=== PATIENT | male | born 1935 | race Caucasian/White ===

== ENCOUNTER 2016-11-19 01:54 | Inpatient (IN) ==
[2016-11-19] MEDS ORDERED: ASPIRIN PO STA (02:02)
[2016-11-19 02:15] LABS: MANUAL DIFF NEEDED? NO
--- NOTE | 2016-11-19 02:17 | EKG Report ---
Test Performed on : 11/19/2016 02:09:02 AM Test Reason : CHEST PAIN Blood Pressure : / mmHG Vent. Rate : 091 BPM Atrial Rate : 091 BPM P-R Int : 180 ms QRS Dur : 094 ms QT Int : 360 ms P-R-T Axes : 049 -03 032 degrees QTc Int : 442 ms Normal sinus rhythm. Nonspecific ST and T wave abnormality Abnormal ECG When compared with ECG of 11-AUG-2015 19:14, ST now depressed in Anterior leads Nonspecific T wave abnormality now evident in Lateral leads Unconfirmed Result
--- NOTE | 2016-11-19 02:27 | PROVIDER DOCUMENTATION ---
HPI-Chest Pain - General Source: patient, family - History of Present Illness-CP Location: reports: central Chest Pain Radiation: reports: no radiation Quality of Pain: reports: dull, pressure Severity in ED: mild, moderate Onset/Duration: last night Timing: improving Modifying Factors: worse with: lying down Associated Symptoms: denies: abdominal pain, edema, nausea, shortness of breath , vomiting, weakness Nitro Today/Relief: 0.4 mg x 1, provided by EMS Aspirin Treatment Today: 325 mg x 1, provided by EMS Similar Symptoms Previously?: Yes Recently Seen Here or By Another Healthcare Provider: Yes (Acid reflux) <Jam Gordon - Last Filed: 11/19/16 03:02> <Hansel Maurice - Last Filed: 11/19/16 04:54> - General Chief Complaint: Chest Pain Stated Complaint: chest pain Time Seen by Provider: 11/19/16 02:28 Allergies/Adverse Reactions: Patient Allergies Allergy/AdvReac Type Severity Reaction Status Date / Time meperidine HCl * Allergy Unknown Verified 11/19/16 02:02 [From Jose] Home Medications: Home Medication List Medication Instructions Recorded Confirmed Last Taken Type Alprazolam [Xanax] 0.25 mg PO BID 08/11/15 08/11/15 08/11/15 07:00 History Aspirin [Aspirin EC] 81 mg PO DAILY 08/11/15 08/11/15 08/10/15 21:00 History Clopidogrel [Plavix] 75 mg PO DAILY 08/11/15 08/11/15 08/11/15 07:00 History Famotidine 40 mg PO QHS 08/11/15 08/11/15 08/10/15 21:00 History Hydrocodone Bit/Acetaminophen 1 tab PO Q4H PRN 08/11/15 08/11/15 Unknown History [Hydrocodon-Acetaminophen 5-325] Ipratropium 0.03% Nasal [place] 1 dose INH DIRECTED 08/11/15 08/11/15 08/11/15 18:00 History [Atrovent 0.03% Nasal [place]] Ketorolac 0.4% Ophth Soln [Acular 2 drop OP DAILY 08/11/15 08/11/15 08/11/15 07: 00 History Ls 0.4% Ophth Soln] Losartan Potassium [Cozaar] 100 mg PO DAILY 08/11/15 08/11/15 08/10/15 21:00 History Minoxidil 5 mg PO QHS 08/11/15 08/11/15 08/10/15 21:00 History Multivitamin [Multivitamins] 1 cap PO DAILY 08/11/15 08/11/15 08/11/15 07:00 History Nebivolol HCl [Bystolic] 10 mg PO DAILY 08/11/15 08/11/15 08/11/15 07:00 History Piroxicam 20 mg PO DAILY 08/11/15 08/11/15 08/11/15 07:00 History Polyethylene Glycol 3350 [Miralax] 1 dose PO DIRECTED PRN 08/11/15 08/11/15 Unknown History Vit A/Vit C/Vit E/Zinc/Copper 1 cap PO DAILY 08/11/15 08/11/15 08/11/15 12:00 History [I-Caps Areds Softgel] Zolpidem [Ambien] 10 mg PO QHS 08/11/15 08/11/15 08/10/15 21:00 History - History of Present Illness-CP Nature of Presenting Problem: 81 y/o M presents with chest pain that has happened the last 2 nights. Pt claims when he gets up and sits in the recliner the pain goes away in about an hour. (Jam Gordon) Review of Systems - Adult - REVIEW OF SYSTEMS - ADULT Constitutional: denies: chills, fever Eyes: reports: no symptoms reported Ears, Nose, Mouth & Throat: reports: no symptoms reported Cardiovascular: reports: chest pain. denies: edema, palpitations, syncope Respiratory: denies: cough, shortness of breath, wheezing Gastrointestinal: denies: abdominal pain, nausea, vomiting Genitourinary: reports: no symptoms reported Musculoskeletal: reports: no symptoms reported Integumentary: reports: no symptoms reported Neurological: reports: no symptoms reported Psychiatric: reports: no symptoms reported Endocrine: reports: no symptoms reported Hematologic/Lymphatic: reports: no symptoms reported Allergic/Immunologic: reports: no symptoms reported All Other Systems: Reviewed and Negative <Jam Gordon - Last Filed: 11/19/16 03:02> Past History - Adult - PAST MEDICAL HISTORY-ADULT Review of Records: reports: Old Records Reviewed, Nursing Assessment Review, Medications Reviewed Major Childhood Illnesses: reports: denies history Genitourinary: reports: prostate cancer Neurological: reports: TIA Endocrine/Immune: reports: Diabetes Additional History: Anibal Banet Syndrome - PRIOR SURGERIES/PROCEDURES Surgical/Procedure History: reports: appendectomy, other (eye, carotid artery, lumbar epidural, left leg) - IMMUNIZATION STATUS Childhood Immunizations: See Nurse Assessment Flu Vaccine: See Nurse Assessment - FAMILY HISTORY Family History: reviewed, not pertinent - SOCIAL HISTORY Smoking: cigarettes Living Situation: family <FouziaJam todd - Last Filed: 11/19/16 03:02> Physical Exam-General - PHYSICAL EXAM-ADULT Initial Vital Signs Reviewed: Yes - CONSTITUTIONAL General Appearance: alert, no apparent distress - EYES Eyes: PERRL/EOMI, pink conjunctivae - HEAD, EARS, NOSE, MOUTH & THROAT HENMT: moist mucous membranes, normal ENT inspection, TMs normal, pharynx normal - NECK Neck: non-tender, full range of motion, supple, normal inspection - RESPIRATORY Respiratory: lungs clear, normal breath sounds, no pleuratic chest pain, no respiratory distress, no accessory muscle use - CARDIOVASCULAR Cardiovascular: normal peripheral pulses, regular rate, rhythm - GASTROINTESTINAL (ABDOMEN) Abdominal Exam: normal bowel sounds, non tender, soft - MUSCULOSKELETAL Back Exam: normal inspection, no CVA tenderness, no vertebral tenderness Extremity: normal range of motion, non-tender, normal gait, normal inspection - SKIN Integumentary: normal color, normal turgor, warm/dry - NEUROLOGIC Neurologic: grossly normal, no motor/sensory deficits - PSYCHIATRIC Psych/Mental Status: normal mood/affect, normal thought content, normal thought process, oriented x 3 <Cm Gordonin - Last Filed: 11/19/16 03:02> Progress - EKG 1 Time of EKG reading by physician:: 02:09 EKG Read and Signed by:: Hansel Maurice EKG Interpretation (*Must complete 3 of following elements*): Abnormal Rate: 91 Rhythm: NSR Comments: nonspecific St and T wave abnormality <Jam Gordon - Last Filed: 11/19/16 03:02> - EKG 2 Time of EKG reading by physician:: 04:54 EKG Read and Signed by:: Hansel Maurice EKG Interpretation (*Must complete 3 of following elements*): Normal Rate: 86 Rhythm: sinus [place]: normal QRS: normal AR Interval: normal ST Wave: non-specific ST changes Prior EKG Comparison: unchanged from prior <Hansel Maurice - Last Filed: 11/19/16 04:54> Departure - Departure Time of Disposition Order: 03:02 Certified Medical Emergency: Emergent <Jam Gordon - Last Filed: 11/19/16 03:02> <Hansel Maurice - Last Filed: 11/19/16 04:54> - Departure DIAGNOSIS: Atypical chest pain Disposition: STILL A PATIENT 30 Condition: Stable Referrals: Nate Whiting MD [Primary Care Provider] - Attestation - Scribe Verification/Attestation Scribe:: Jam Gordon Acting as Scribe for:: Hansel Maurice Scribe documention review:: This chart was documented by a scribe and accurately reflects the service the provider performed and the decisions made by the provider. <Jam Gordon - Last Filed: 11/19/16 03:02> Physician Attestation
[2016-11-19 02:29] LABS: BASO% 0.6 % (0.0-0.8); EOS# 0.34 X1000 (0.0-0.7); EOS% 3.3 % (0.0-10.0); HEMATOCRIT 24.6 % (42.0-52.0); HEMOGLOBIN 7.5 g/dL (14.0-18.0); IMM GRAN# 0.04 X1000 (0.0-0.04); IMM GRAN% 0.4 % (0.0-0.5); MCH 25.3 PG (27-31); MCHC 30.5 g/dL (33-37); MCV 83.1 FL (81-99); MONO# 1.58 X1000 (0.11-0.59); MONO% 15.2 % (1.7-9.3); MPV 9.5 FL (7.4-10.4); NEUT% 55.5 % (42.2-75.2); PLT 374 X1000 (130-400); RBC 2.96 XMIL (4.7-6.1)
[2016-11-19 02:40] LABS: AGAP 12; ALBUMIN 3.9 g/dL (3.5-5.0); ALKALINE PHOSPHATASE 56 U/L (32-122); BUN 34 mg/dL (8-22); CHLORIDE 106 mmol/L (98-107); CK PROFILE 70 U/L (24-204); COSMO 286; GOT 11 U/L (10-34); GPT 8 U/L (10-44); POTASSIUM 4.2 mmol/L (3.5-5.1); SODIUM 137 mmol/L (136-145); TCO2 20 mmol/L (25-35); TOTAL BILIRUBIN < 0.15 mg/dL (0.20-1.00); TOTAL PROTEIN 5.9 g/dL (6.3-8.3)
[2016-11-19 02:43] LABS: INR 0.96 (0.86-1.15); PROTIME 13.1 Seconds (12.1-15.5)
[2016-11-19 02:44] LABS: PTT PL 28.9 Seconds (22.6-43.9)
[2016-11-19 04:38] LABS: OCCULT BLOOD 1 POSITIVE (NEGATIVE)
--- NOTE | 2016-11-19 07:07 | EKG Report ---
Test Performed on : 11/19/2016 04:22:23 AM Test Reason : p Blood Pressure : / mmHG Vent. Rate : 086 BPM Atrial Rate : 086 BPM P-R Int : 174 ms QRS Dur : 094 ms QT Int : 366 ms P-R-T Axes : 054 -04 032 degrees QTc Int : 437 ms Normal sinus rhythm. Normal ECG When compared with ECG of 19-NOV-2016 02:09, (Unconfirmed) No significant change was found Unconfirmed Result
--- NOTE | 2016-11-19 07:55 | Diag Imaging Result Document ---
PROCEDURE NAME: CHEST-2 VIEWS - 11/19/2016 PA AND LATERAL RADIOGRAPH OF THE CHEST: COMPARISON: 08/11/2015. FINDINGS: There is evidence of prior granulomatous disease, stable. There is suggestion of trace atelectasis at the right mid lung zone. The lungs are clear otherwise. There is no definite pleural fluid collection. Cardiac silhouette and central vasculature are grossly unremarkable. IMPRESSION: Trace atelectasis in the right mid lung zone. No definite acute pathology, otherwise.
[2016-11-19] MEDS ORDERED: TYLENOL PO PRN (08:52)
[2016-11-19] MEDS ORDERED: ZOFRAN IV PRN (08:52)
[2016-11-19 10:04] LABS: HEMATOCRIT 26.7 % (42.0-52.0); HEMOGLOBIN 8.1 g/dL (14.0-18.0)
[2016-11-19] MEDS ORDERED: NORCO-5 PO PRN (10:41)
--- NOTE | 2016-11-19 12:04 | CONSULTATION ---
DATE OF CONSULTATION: 11/19/2016 PRIMARY CARE DOCTOR: Dr. Nate Whiting. PRIMARY SOFTWARE VERIFICATION ENGINEER: Dr. Verena Garcia. REASON FOR CONSULTATION: Anemia, positive Hemoccult, and atypical chest pain. HISTORY OF PRESENT ILLNESS: Mr. Sexton is an 81-year-old male who was admitted through the ER for new onset of chest pain for the last 2 days. According to the patient, he feels pressure in his chest in the lower chest, along with nausea. It got worse last evening any he presented to the ER at [facility]. In [facility], he was seen by Dr. Maurice, and was given nitroglycerin and aspirin per the EMT. During initial workup, he was noted to have anemia with hematocrit of 24 and a positive Hemoccult. The patient has a known history of TIAs and carotid stenosis, and as on aspirin and Plavix. He is also on Mobic every day for arthritis. The patient has seen Dr. Whiting few weeks ago for his symptoms of nausea and discomfort, and he was diagnosed with reflux disease and was put on acid azul medication. Since being in the hospital, the patient denies any vomiting, vomiting blood, passing blood in the stools, or black stools. He has had last colon examination by Dr. Garcia many years ago and was told he had polyps. He does not recall having an EGD done in the past. PAST MEDICAL HISTORY: Several TIAs, diabetes mellitus, chronic kidney disease, major fall and hit his head in 2013, prostrate cancer, hearing loss, and macular degenerative disease with legal blindness. PAST SURGICAL HISTORY: Appendectomy, angiography, left carotid artery surgery, right carotid artery surgery, lumbar epidural and right leg artery surgery, surgery to remove excess blood in the left eye, cataract in the right eye, angiography in 1992 and 1994. SOCIAL HISTORY: He is . He has a very supportive and daughter at bedside. His daughter helps with his activities and managing his medications, and has power of insurance defense attorney. No history of alcohol, tobacco, or illicit drugs. He used to work in [employer] and retired many years ago. FAMILY HISTORY: Noncontributory. ALLERGIES: Demerol. MEDICATIONS AT HOME: Multivitamin once daily. Bystolic 10 mg once daily. Mobic 7.5 mg once daily. Plavix 70 mg daily. Ultracet 37.5/325 mg 1/2 tablet in the morning and 1/2 in the afternoon. Xanax 0.25 mg 1 in the morning and 1 in the afternoon. Neurontin 100 mg 3 times a day. Multivitamin once daily. Cymbalta 30 mg once daily. Prilosec 40 mg once daily at bedtime. Cozaar 100 mg once daily. Ambien 10 mg once daily at nighttime. Aspirin 81 every day at bedtime. Famotidine 40 mg once daily at bedtime. Minoxidil 50 mg at bedtime. MEDICATIONS IN HOSPITAL: Protonix drip, Tylenol, Zofran, IV fluids at 100 mL/h, Carafate 1 g q.6 hours. He is currently on a clear liquid diet. REVIEW OF SYSTEMS: Denies any fevers, rigors, chills. Complains of atypical chest pain as a pressure in his chest, being worked up by the primary team. Denies any shortness of breath, PND, or orthopnea. Denies any coughing spells. Denies any vomiting or passing blood in the stools. Denies any new genitourinary complaints. Does have history of arthritis in the back and taking Mobic. Denies any new neurological complaints. He has a prior history of TIAs. PHYSICAL EXAMINATION: Vital signs: Temperature 97.5 degrees, pulse of 85, respiratory rate 16, blood pressure 150/72, saturating 99% on nasal cannula. Body weight of 194 pounds 11 ounces. BMI of 27 kg/sq m. General Appearance: Moderately nourished, lying in bed in no acute distress. HEENT: Pale conjunctivae. No icterus. Pupils equal, react to light. Neck: Supple. Chest: Air entry is equal. Cardiac: Regular rhythm. No murmur. Abdomen: Soft, nontender, nondistended. Bowel sounds are noted. No guarding or rebound. Extremities: No cyanosis, clubbing, or edema. Neurologic: He is alert, awake, and oriented. LABORATORY AND DIAGNOSTIC TESTS: Hemoglobin and hematocrit are 7.5 and 24.6, white count 10.3, platelet count of 374,000, MCV 83.1. INR of 0.96, PT of 13.1, PTT of 28.9. Sodium 137, potassium 4.2, chloride 106, bicarbonate 20, anion gap 12, BUN of 34, creatinine of 2, glucose of 177, calcium 9, magnesium 2.0, total bilirubin 0.15, AST 11, ALT 8, alkaline phosphatase 56, total protein 5.9, albumin 3.9. Troponin is less than 0.01. His stool occult blood was positive. His chest x-ray done in the hospital showed trace atelectasis in the right mid lung zone. No definite acute pathology. IMPRESSIONS: 1. Positive Hemoccult and low hematocrit anemia. 2. History of transient ischemic attacks and carotid stenosis, on aspirin and Plavix. 3. History of arthritis, on Mobic. 4. Hearing loss. 5. 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 6. History of colon polyps. 7. Nausea and atypical chest pain. 8. Reflux disease. RECOMMENDATIONS: 1. We will continue to keep a close eye on patient's hemoglobin and hematocrit and transfuse to keep hematocrit more than 27%. 2. The patient will continue Protonix drip for now. We will keep him on Carafate 1 g every 6 hours. 3. The patient will be started on a clear liquid diet, as per primary team. 4. We will check platelet aggregation study in the morning. 5. Patient is scheduled for esophagogastroduodenoscopy tomorrow morning with Dr. Garcia. The risks, benefits, indications, and alternatives of the procedure were discussed with the patient and family, and all questions were answered. 6. We will avoid any NSAIDs and blood thinners for now, until the hematocrit stabilizes. 7. There is a small risk of transient ischemic attack or clot forming while coming off the anti- platelet agents and these risks were discussed with the patient and family at bedside. 8. We will start him on bowel regimen, as the patient appears to be constipated. We will start him on Dulcolax suppository at bedtime and some Radha-Colace by mouth. 9. The patient was ordered a CT scan, which has not been done yet. We will follow the results of that. 10. Further recommendations to follow, pending hospital course. I discussed the above plan of care with the patient and family and the primary care team, and all questions were answered. Please call us with any further questions.
[2016-11-19 12:10] LABS: IRON SATURATION 10 %; TIBC 352 ug/dL; TOTAL IRON 36 ug/dL (53-167); UNBOUND IRON 316 ug/dL (112-346)
--- NOTE | 2016-11-19 12:37 | HISTORY AND PHYSICAL ---
PRIMARY CARE PROVIDER: Dr. Whiting. CHIEF COMPLAINT: Chest pain, spells of nausea and vomiting. HISTORY OF PRESENT ILLNESS: Mr. Sexton is an 81-year-old, male with a history of macular degeneration, can only see anywhere from 5 to 10%, diabetes, CKD, hypertriglyceridemia, who apparently about a week and a half ago was having some spells of chest pains with nausea and vomiting. They went away and then over the last 2 days he started having some chest pains again. Apparently he was under significant stress yesterday as he had to put a loved dog to sleep that he had had for 11 years. This brought significant stress and chest pain and so he presented to [facility] where he was worked up for rule out of coronary artery disease. It was also found during workup that he had a hemoglobin and hematocrit of 7.5 and at 24.6. He also had a positive occult stool with blood. Given the patient's vision, it is unable to determine whether there is blood in the stool or in the emesis that he had. He apparently has been taking aspirin, it is not enteric-coated. He also has been taking Mobic over the last month that was newly started for arthritis that he has in his hips. He also does have a history of GERD. En route to the ER for the complaints of chest pain they had given him aspirin 325 mg and a sublingual nitroglycerin prior to arrival. He still actually has some pain. It is not substernal; it is actually below, in the epigastric region. States that it is a 2 and that it is just a dull ache. He had no radiation of the pain to the arms or the neck. He had no diaphoresis. He did have nausea. The pain is constant. Given his low hemoglobin and hematocrit and the positive stool for blood, a GI consult has been consulted. He will go for an EGD tomorrow. He will receive blood transfusion and any medications that are agitating to the stomach has been held. He will be started on a Protonix drip and on Carafate, clear liquids today, and then NPO after midnight. PAST MEDICAL HISTORY: Diabetes but no medication, CKD stage 2, cluster TIA, prostate cancer, DVT, hypertriglyceridemia, macular degeneration with 5 to 10% vision, Anibal Bonnet syndrome, GERD, PAST SURGICAL HISTORY: Left leg artery in 2013, lumbar epidural, left carotid, CEA in 2010, right carotid CEA 2005, prostate cancer surgery in 2004, likely a prostatectomy, left heart catheterization in 1992 and 1994, appendectomy in 1972, cataract surgery. SOCIAL HISTORY: He is . Lives with his . He is a less than a half pack per day smoker. Denies alcohol or illicit drug use. He uses a walking stick to walk. FAMILY HISTORY: Father had prostate cancer. Mother had dementia. Sister had congestive heart failure and end-stage renal disease and a brother had prostate cancer. REVIEW OF SYSTEMS: Fourteen point review of systems were complete and all are negative except for those mentioned in the above HPI. ALLERGIES: Demerol. HOME MEDICATIONS: Mobic 7.5 mg p.o. daily, [place] 5 one tablet p.o. every 4 hours as needed, MiraLAX 17 g p.o. daily as needed, Acular ophthalmic drops daily, Ambien 10 mg p.o. nightly, enteric-coated aspirin 81 mg p.o. daily as a baby aspirin, Atrovent nebulizer as needed, Pepcid 40 mg p.o. nightly, Cozaar 100 mg p.o. daily, minoxidil 5 mg p.o. at bedtime, multivitamins p.o. daily, Bystolic 10 mg p.o. daily, piroxicam 20 mg p.o. daily, Plavix 75 mg p.o. daily, vitamin with vitamin A C, E, zinc, copper 1 capsule p.o. daily, Xanax 0.25 mg p.o. twice daily. LABORATORY DATA: White blood cells 10,000, hemoglobin and hematocrit on admit were 7.5 and 24.6, repeat this morning was 8.1 and 26.7, platelet count 374,000. INR 0.96. D- dimer is 1.08. Sodium 137, potassium 4.2, BUN 34, creatinine 2.0, glucose 177, magnesium 2.0, total bilirubin less than 0.15, AST 11, ALT 8. CK 69. Troponin is less than 0.01. ProBNP is 1,133. Total protein 5.9. Stool positive for blood. IMAGING: An abdominal and pelvic CT without contrast has been ordered. EKG: Normal sinus rhythm, rate 86. No ST elevations or depressions noted. No Q-waves. QTc is 437. Rate is 86. Chest x-ray: Trace atelectasis in the right mid lung zone. No definite acute pathology. No mention of COPD. PHYSICAL EXAMINATION: VITAL SIGNS: Temperature 97.5 degrees, heart rate 85, respiratory rate 16, blood pressure 158/72, O2 saturation 99% on nasal cannula. He is 5 feet 11 inches tall, 194.11 pounds , BMI 27.2. GENERAL: Mr. Sexton is an 81-year-old male. He is in no acute distress. He is able answer most questions appropriately. HEENT: Atraumatic, normocephalic. Pupils are equal. He has macular degeneration. He is unable to perform extraocular movements. Mucous membranes are dry. NECK: No JVD or carotid bruits. CARDIOVASCULAR: S1, S2. Regular rate and rhythm. No rubs, gallops, or murmurs. PULMONARY: Clear to auscultation. Bilateral breath sounds. Decreased in the bases. No accessory muscle use or work of breathing noted. Currently on nasal cannula. GI: Soft. Positive bowel sounds x4. Tender in the right upper and lower quadrants. EXTREMITIES: Trace of lower extremity edema. There are +2 dorsalis and radial pulses. NEUROLOGIC: Oriented x4. Moves all extremities equally. ASSESSMENT AND PLAN: 1. Gastrointestinal bleed. Likely epigastric given symptoms of atypical chest pains and epigastric type pain. He has been having some vomiting and daily stools. It is unknown if these were black and tarry or bloody as patient's macular degeneration prevents him from being able to visualize the color. We will start him on a Protonix drip, Carafate , clear liquids, NPO after midnight, EGD in the morning. Gastroenterology is following. Will do serial hemoglobin and hematocrit. His stool was positive for blood. Will do IV fluid hydration. The patient was on Mobic and regular aspirin that was not enteric-coated and those have been held. P2Y12 and platelet aggregate has been ordered for in the morning. 1. Atypical chest pain. No ST changes on EKG. He has normal cardiac enzymes. He does have an elevated proBNP. His last echocardiogram had a normal ejection fraction back in 2014. Will repeat an echocardiogram and recheck cardiac enzymes with EKG in the morning. 2. Acute blood loss anemia secondary to #1. Will do serial hemoglobin d hematocrit and he will receive 1 unit of blood today. 3. Acute kidney injury on chronic kidney disease stage 2. Creatinine is 2.0. He will have IV fluid hydration . Will do a urinalysis with urine sodium and creatinine. Likely secondary to dehydration. 4. Hypertension. Home medications have been continued. 5. Diabetes mellitus. We will do pattern blood glucoses, although he does not have any diabetic medications at home, and a sliding scale insulin. Will also be checking a hemoglobin A1c in the morning. 6. Hypertriglyceridemia. Will do a lipid panel in the morning. Continue home medications. 7. Chronic pain in the left shoulder and in the bilateral hips. This is what he was taking Mobic for. Will just do Tylenol as needed for now. 8. History of transient ischemic attack status post carotid endarterectomies bilaterally. No residuals noted. 9. History of a deep vein thrombosis. He has a mildly elevated D-dimer. Will add a V/Q scan given his kidney dysfunction and then lower extremity Dopplers as he will have his Plavix on hold secondary to the GI bleed and his aspirin on hold. 10. Macular degeneration. Five to 10% vision only. 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 12. Deep venous thrombosis prophylaxis. SCDs. 13. Gastrointestinal prophylaxis. He is on a Protonix drip. 14. Tobacco abuse. Cessation discussed. Dictated by ELAINE Patel for Casey Gonsales MD Addendum: I personally evaluated and examined the patient in conjunction to the OPERATION SUPERVISOR and agreed with her assessments and plans. No abd pain on my exam. Chest pain resolved. JEMIMA
[2016-11-19 12:43] LABS: FERRITIN 11 ng/mL (30-400)
--- NOTE | 2016-11-19 13:08 | Diag Imaging Result Document ---
PROCEDURE NAME: ABDOMEN/PELVIS W/O CONTRAST - 11/19/2016 CT ABDOMEN AND PELVIS: A CT dose reduction protocol was used. COMPARISON: None. FINDINGS: There is some linear atelectasis in the lung bases. There are trace pleural effusions. Anemia is present. There is a small infrarenal abdominal aortic aneurysm measuring 3.6 x 3.3 cm maximally. No radiodense renal stones or urinary obstruction. There is severely advanced vascular disease of all the arteries in the abdomen and pelvis. There are metallic stents in the right external iliac artery. There is a large testicular hydrocele on the left measuring 5.2 cm. There is extremely severe diverticulosis of the sigmoid colon. No bowel obstruction or inflammation. No free air or free fluid. There is diverticulosis of the right colon as well. Heavy degeneration throughout the thoracolumbar spine. No acute bony lesions. IMPRESSION: 1. Severe diverticulosis coli. 2. Large testicular hydrocele on the left. 3. Severe vascular disease. [facility]
--- NOTE | 2016-11-19 14:15 | Diag Imaging Result Document ---
PROCEDURE NAME: LUNG SCAN / VQ - 11/19/2016 NUCLEAR MEDICINE V/Q SCAN: COMPARISON: None available. FINDINGS: 37.9 mCi of technetium-99m DTPA was administered for the ventilation portion of the scan. 5.9 mCi of technetium-99m MAA was administered intravenously for the perfusion portion of the scan. No perfusion defects are identified. The ventilation portion of the scan is unremarkable as well. IMPRESSION: Normal V/Q scan.
[2016-11-19] MEDS: NS 1,000 ML IV SCH (15:04)
[2016-11-19] MEDS: CARAFATE LIQUID PO SCH ×3 (15:25→21:19)
[2016-11-19] MEDS: BYSTOLIC PO SCH (15:28)
[2016-11-19] MEDS: OCUVITE LUTEIN & ZEAXANTHIN PO SCH (15:28)
[2016-11-19] MEDS: THERA M PLUS PO SCH (15:28)
[2016-11-19] MEDS: COZAAR PO SCH ×2 (15:28→21:18)
[2016-11-19] MEDS: XANAX PO SCH ×2 (15:28→21:19)
[2016-11-19] MEDS: PROTONIX 80 MG in NS 80 ML IV SCH ×2 (15:59→17:04)
[2016-11-19] MEDS: NEURONTIN PO SCH ×2 (16:10→21:17)
[2016-11-19] MEDS: CYMBALTA PO SCH (16:10)
[2016-11-19] MEDS: HUMULIN R SUBQ SCH ×2 (17:04→21:21)
[2016-11-19 18:07] LABS: URINE CULTURE NEEDED? NO; URINE MICRO REVIEW NEEDED? NO; URINE SOURCE CLEAN CATCH
[2016-11-19 18:17] LABS: BILIRUBIN URINE NEGATIVE (NEGATIVE); BLOOD URINE NEGATIVE (NEGATIVE); COLOR YELLOW; GLUCOSE URINE 100 mg/dL (NEGATIVE); LEUKOCYTES URINE NEGATIVE (NEGATIVE); NITRITE URINE NEGATIVE (NEGATIVE); PH URINE 5.5; PROTEIN URINE NEGATIVE (NEGATIVE); SP GRAVITY URINE 1.011; TURBIDITY URINE CLEAR (CLEAR); UR EPITHELIAL CELLS <10 /HPF (<10); URINE BACTERIA NEGATIVE /HPF; URINE RBC <10 /HPF (<10); URINE WBC <10 /HPF (<10); UROBILINOGEN URINE NORMAL (NORMAL)
[2016-11-19 18:25] LABS: UR CREAT RANDOM 52.3 mg/dL (14-26)
[2016-11-19 18:53] LABS: HEMATOCRIT 26.8 % (42.0-52.0); HEMOGLOBIN 8.4 g/dL (14.0-18.0)
--- NOTE | 2016-11-19 18:56 | ECHO REPORT ---
ORDER DATE: 11/19/2016 MEASUREMENTS: Left ventricle end-diastolic diameter: 4.9. Left ventricle end-systolic diameter: 3.5. Septal thickness: 1.6. Posterior wall thickness: 1.1. Left atrium: 4.3. Aortic root diameter: 2.6. SUMMARY: 1. Fair quality study. 2. Aortic mitral, tricuspid, and pulmonic valves all without structural abnormality with mild mitral regurgitation and trace tricuspid regurgitation. The aortic root is normal in size. 3. Normal left ventricular chamber size with mild concentric left hypertrophy is suggested on 2-D images. Estimated left ejection fraction approximately 60%. No regional wall motion abnormalities are evident. Doppler suggests grade 1 left ventricular diastolic dysfunction. 4. Doppler suggests grade 1 left ventricular diastolic dysfunction. Left atrium is mildly enlarged. Right atrium and right ventricle are of normal size with grossly preserved right ventricular systolic performance. 5. No pericardial effusion. 6. Appearance of inferior vena cava suggests normal central venous pressure. CONCLUSIONS: 1. Mild mitral regurgitation. 2. Mild concentric left hypertrophy with estimated left ejection fraction 60%. 3. Doppler suggests grade 1 left ventricular diastolic dysfunction. 4. Mild left atrial enlargement.
--- NOTE | 2016-11-19 18:59 | Extremity Venous Study ---
PROCEDURE NAME: Venous U/S Bilateral Legs - 11/19/2016 BILATERAL LOWER EXTREMITY VENOUS DUPLEX, AND COLOR FLOW IMAGING STUDY USING THE ZeroVMID E 9 ULTRASOUND SYSTEM WITH A 9 L-D TRANSDUCER: REFERRING PHYSICIAN: Casey Miles MD IDENTIFYING INFORMATION: 81-year-old male. GUIDE ESCORT: Louis. INDICATIONS: 1. Elevated D-dimer, ICD 10 R94.2. 2. Swelling of the limb, M79.89. FINDINGS: The right common femoral vein and its branches, deep and superficial femoral veins were satisfactorily imaged. They had flow through them and were compressible. Right popliteal vein and the deep veins below the right knee were all compressible and had flow through them. Superficial veins the right lower extremity were compressible throughout their length. The left common femoral vein and its branches, deep and superficial femoral veins were also satisfactorily imaged. They had flow through them and were compressible. Left popliteal vein and the deep veins below the left knee were all compressible and had flow through them. The superficial veins of the left lower extremity were compressible throughout their length. INTERPRETATION: No evidence of acute deep or superficial venous thrombosis of the bilateral lower extremities.
[2016-11-19] MEDS ORDERED: PEPCID PO SCH (21:00)
[2016-11-19] MEDS ORDERED: DULCOLAX PR SCH (21:00)
[2016-11-19] MEDS ORDERED: AMBIEN PO SCH (21:00)
[2016-11-19] MEDS ORDERED: LONITEN PO SCH (21:00)
[2016-11-19] MEDS: PERICOLACE PO SCH (21:21)
[2016-11-20 01:25] LABS: HEMATOCRIT 27.2 % (42.0-52.0); HEMOGLOBIN 8.5 g/dL (14.0-18.0)
[2016-11-20] MEDS: CARAFATE LIQUID PO SCH ×2 (02:58→13:36)
[2016-11-20] MEDS: NS 1,000 ML IV SCH ×3 (03:14→13:43)
[2016-11-20] MEDS: PROTONIX 80 MG in NS 80 ML IV SCH (05:11)
[2016-11-20 06:14] LABS: MANUAL DIFF NEEDED? NO
[2016-11-20 06:26] LABS: BASO% 0.6 % (0.0-0.8); EOS# 0.29 X1000 (0.0-0.7); EOS% 2.7 % (0.0-10.0); HEMATOCRIT 29.3 % (42.0-52.0); HEMOGLOBIN 9.3 g/dL (14.0-18.0); IMM GRAN# 0.02 X1000 (0.0-0.04); IMM GRAN% 0.2 % (0.0-0.5); LYMPH% 19.9 % (20.5-51.1); MCHC 31.7 g/dL (33-37); MCV 81.8 FL (81-99); MONO# 1.65 X1000 (0.11-0.59); MONO% 15.6 % (1.7-9.3); MPV 9.5 FL (7.4-10.4); PLT 376 X1000 (130-400); RBC 3.58 XMIL (4.7-6.1)
[2016-11-20 06:36] LABS: INR 0.97; PROTIME 10.2 Seconds (9.2-11.7); PTT 25.9 Seconds (22.0-36.0)
[2016-11-20] MEDS: HUMULIN R SUBQ SCH ×2 (06:42→13:42)
[2016-11-20 07:02] LABS: ALBUMIN 3.8 g/dL (3.5-5.0); CALCIUM 9.3 mg/dL (8.8-10.2); MAGNESIUM 1.8 mg/dL (1.5-2.7); POTASSIUM 4.8 mmol/L (3.5-5.1); TOTAL BILIRUBIN 0.29 mg/dL (0.20-1.00); TOTAL PROTEIN 6.3 g/dL (6.3-8.3)
[2016-11-20 07:09] LABS: HEMOGLOBIN A1C 6.3 % (4.8-6.0)
[2016-11-20 07:11] LABS: FREE T4 1.01 ng/dL (0.93-1.70)
[2016-11-20 07:50] LABS: COLLAGEN/ADP PLT AGG 115 Seconds (65-124); COLLAGEN/EPI PLT AGG > 227 Seconds (87-172)
[2016-11-20] MEDS: BYSTOLIC PO SCH (08:52)
--- NOTE | 2016-11-20 09:07 | EKG Report ---
Test Performed on : 11/20/2016 06:12:55 AM Test Reason : chest pain Blood Pressure : / mmHG Vent. Rate : 074 BPM Atrial Rate : 074 BPM P-R Int : 174 ms QRS Dur : 098 ms QT Int : 380 ms P-R-T Axes : 054 -15 015 degrees QTc Int : 421 ms Normal sinus rhythm. Nonspecific ST abnormality Abnormal ECG When compared with ECG of 19-NOV-2016 04:22, (Unconfirmed) No significant change was found Confirmed by Maurizio SPIVEY, Jose Lao ([id number]) on 11/20/2016 5:19:22 PM
[2016-11-20] MEDS ORDERED: MYLICON DROPS (DOSE) MISC ONE (11:40)
[2016-11-20] MEDS ORDERED: MYLICON DROPS (DOSE) ONE (11:44)
[2016-11-20] MEDS ORDERED: DIPRIVAN 1% ONE (12:25)
--- NOTE | 2016-11-20 12:38 | PROGRESS NOTE ---
DATE: 11/20/2016 SUBJECTIVE: Mr. Loc Sexton Jr is an 81-year-old male. He is in no acute distress. He states no more complaints of chest pains and no complaints of epigastric pain. States he feels pretty good after receiving blood. No complaints at this time, just anxiously waiting for his the EGD for today. OBJECTIVE: Vital Signs: Temperature is 97.9 degrees, heart rate 76, respiratory rate 20, blood pressure of 167/72, O2 saturation 100% on room air. General: Mr. Sexton is in no acute distress. He is able to answer questions appropriately. He is blind and hard of hearing. Cardiovascular: S1 and S2. Regular rate and rhythm. No rubs, gallops, or murmurs. Pulmonary: Clear to auscultation. Bilateral breath sounds. No accessory muscle use or work of breathing noted. Gastrointestinal: Soft, nontender, nondistended. Positive bowel sounds x4. Extremities: No edema noted. Dorsalis and radial pulses +2. LABORATORY DATA: White blood cells 10,000, hemoglobin 9.3, hematocrit 29.3, and platelet count 376,000. P2Y12 was 268, it was in the presurgical range. The platelet function was greater than 227. The collagen ADP indicator was 115. Sodium 143, potassium 4.8, BUN 23, creatinine 1.4, glucose 134. Hemoglobin A1c is 6.3. Magnesium 1.8. Total bilirubin 0.29, AST 14, ALT 9. CK 96. Troponin 0.016. proBNP is 1946. Triglycerides 224, total cholesterol 136, LDL 77. B12 is 394, folate 35.9, iron low at 36, ferritin low at 11. IMAGING: All performed yesterday on 11/19/2016. Lung scan V/Q scan: Normal V/ Q scan. Lower extremity Dopplers: No evidence of acute DVT or superficial DVT bilaterally. Echocardiogram: Mild mitral regurgitation, mild concentric left hypertrophy with EF of 60%, grade 1 left ventricular diastolic dysfunction, mild left atrial enlargement. 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 EKG this morning: Normal sinus rhythm, no ST changes. Rate was 74. QTc was 421. ASSESSMENT AND PLAN.: 1. Gastrointestinal bleed. He did have a positive occult stool. He has had no more complaints of pain since he has been on Carafate and Protonix. He has been on Plavix and so levels were drawn this morning, and should go for an EGD today. He has also received IV fluid hydration. 2. Atypical chest pain, resolved. Negative cardiac enzymes. No ST elevations. 3. Acute blood loss anemia secondary to #1. Received 1 unit of packed red blood cells. He is now 9 and 29 on his hemoglobin and hematocrit. 4. Acute kidney injury on chronic kidney disease, stage 2. Creatinine is much improved. It is now 1.4, down from 2.0 after IV fluid hydration. The FENa that was calculated was 2.88%, which would be consistent with acute tubular necrosis. He was on Mobic about a month ago. This will have to be stopped to prevent further kidney damage. 5. Hypertension. Continue home medications. 6. Diabetes mellitus, type 2. He is only on diet control at home. We will continue with sliding scale insulin and pattern blood glucoses. His hemoglobin A1c was 6.3. 7. Hypertriglyceridemia. Continue home medications. 8. Chronic pain in the left shoulder and bilateral hips. Will have to do Tylenol. 9. Iron deficiency anemia. We will start iron supplementation. 10. History of transient ischemic attack status post carotid endarterectomies. No issues. 11. History of deep vein thrombosis. Came in with a mildly elevated D-dimer, but no signs or symptoms of deep vein thrombosis in the legs. 12. Macular degeneration with 5% to 10% vision only. 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 14. Elevated proBNP. The echocardiogram shows normal left ventricular function. 15. Grade 1 diastolic dysfunction per echocardiogram. No acute exacerbation noted. 16. Deep venous thrombosis prophylaxis. Sequential compression devices. 17. Gastrointestinal prophylaxis. Proton pump inhibitor. 18. Tobacco abuse. Cessation discussed. Dictated by ELAINE Patel for Casey Gonsales MD addendum: I personally evaluated and examined the patient in conjunction to the [employer]APH[employer] and discussed with Dr. Armendariz who agreed that the patient can go home without Eliquis or ASA. He will see the patient back in a few days to address his anticoagulatation issue MTDD
[2016-11-20] MEDS ORDERED: ANESTHESIA PB SET 88 IN 5742 ONE (12:53)
[2016-11-20] MEDS ORDERED: 1/2 NS 500 ML ONE (12:53)
[2016-11-20 13:24] VITALS: BP 152/57
[2016-11-20] MEDS: NEURONTIN PO SCH ×2 (13:34)
[2016-11-20] MEDS: THERA M PLUS PO SCH (13:35)
[2016-11-20] MEDS: XANAX PO SCH (13:35)
[2016-11-20] MEDS: CYMBALTA PO SCH (13:35)
[2016-11-20 13:36] LABS: HEMATOCRIT 28.8 % (42.0-52.0); HEMOGLOBIN 9.2 g/dL (14.0-18.0)
[2016-11-20] MEDS: COZAAR PO SCH (13:36)
[2016-11-20] MEDS: OCUVITE LUTEIN & ZEAXANTHIN PO SCH (13:37)
[2016-11-20] MEDS: PERICOLACE PO SCH (13:38)
--- NOTE | 2016-11-20 13:41 | OPERATIVE NOTE ---
PROCEDURE DATE: 11/20/2016 PROCEDURES: Esophagogastroduodenoscopy, need for coagulation of area and second and third portion of the duodenum. PREOPERATIVE DIAGNOSIS: Anemia and GI bleed. 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 DESCRIPTION OF PROCEDURE: After informed consent and adequate intravenous sedation by Anesthesia, the scope introduced into the esophagus and stomach. There is no old blood in the stomach. In the duodenum there is fresh blood. This was aspirated. There were two AVMs leaking in at the distal end of the third portion of the duodenum. Slightly difficult to reach, but I was able to and cauterized using heater probe. At the end of the procedure there is no bleeding. The scope was withdrawn. The patient may have more AVMs distally and on cecal angiodysplasias. We will resume diet and decide on the colonoscopy depending on the clinical course. cc: Verena Garcia MD
--- NOTE | 2016-11-20 17:55 | DISCHARGE SUMMARY ---
ADMISSION DATE: 11/19/2016 DISCHARGE DATE: 11/20/2016 ADMISSION DIAGNOSES: 1. Gastrointestinal bleed. 2. Atypical chest pain. 3. Acute blood loss anemia secondary to GI bleed. 4. Acute kidney injury on chronic kidney disease stage 2. 5. Hypertension. 6. Diabetes mellitus. 7. Hypertriglyceridemia. 8. Chronic pain of the left shoulder and bilateral hips. 9. History of deep venous thrombosis. 10. Macular degeneration. 11. Tobacco abuse. DISCHARGE DIAGNOSES: 1. 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 2. Atypical chest pain resolved. No ST elevations or abnormal cardiac enzymes. Echocardiogram was normal. It did show some diastolic grade 1 dysfunction. 3. Acute blood loss anemia. Stable. He did receive 1 unit of blood during this admit. 4. Acute kidney injury on chronic kidney disease. Looks like it is secondary to medications. All nephrotoxic medications have been stopped. He had elevated FENa at 2.8. 5. Hypertension stable. 6. Diabetes mellitus type 2. Stable. 7. Hypertriglyceridemia. 8. Chronic pain of the left shoulder and bilateral hips, only do Tylenol. 9. History of deep venous thrombosis and had elevated D-dimer. V/Q scan was negative for PE and the lower extremities were negative for DVT. 10. Macular degeneration. Stable. 11. Tobacco abuse. Cessation discussed. 12. Iron-deficiency anemia. He will go home with iron supplementation. CONSULTS: 1. Garth Patino MD 2. Verena Garcia MD PROCEDURE: 11/20/2016, today, he had an EGD and there were 2 AVMs leaking in the distal end of the 3rd portion of the duodenum and those have been cauterized and hemostasis was obtained. HOSPITAL COURSE: Mr. Sexton is an 81-year-old, male with a history of macular degeneration, CKD, hypertriglyceridemia who apparently about a week and a half ago was having some spells of chest pain with nausea and vomiting. That went away and then over the last 2 days started having chest pains again. Apparently he lost his dog the day prior to admission which caused a lot of stress and so the pains in his chest increased. They did not radiate and did not cause diaphoresis. He never had ST elevations. Cardiac enzymes remained negative. He had presented to [facility] and was transferred here. During his workup, he had a hemoglobin and hematocrit is 7.5 and 24.6, and a positive occult stool. He had been taking aspirin that was not enteric-coated. He had started Mobic about a month ago. He was also on Plavix. When questioned in further detail about the chest pain it was more in the epigastric region that he felt it. During his stay, chest pain resolved. His EGD today revealed that he had 2 AV malformations in the 3rd portion of the duodenum with hemostasis obtained through cauterization by Dr. Garcia. He did receive 1 unit of blood yesterday. He was started on Carafate and a Protonix drip. He will go home on at least 2 weeks worth of Carafate and Protonix daily. He will follow up with Dr. Garcia within a week and at that time a decision will be made of a colonoscopy will need to be done. Also during his stay, he had abdominal pelvic CT which showed severe diverticulosis coli and a large testicular hydrocele on the left. Given that Urology was not following any unattached patients the family was instructed to have this followed up with his primary care provider. DISCHARGE VITAL SIGNS: Temperature 97.8 degrees, heart rate 73, respiratory rate 14, blood pressure 152/57, O2 saturation 98% on room air. HOME MEDICATIONS: New medications will include Carafate 1 g p.o. 3 times a day for 2 weeks, Protonix 40 mg p.o. daily, Icar C 1 tab p.o. twice daily for iron deficiency anemia. The medications that he will stopped will be aspirin, Plavix and Mobic. Other home medications that he will go home on will be Neurontin 100 mg p.o. 3 times a day, Cymbalta 30 mg p.o. daily, Ultram 0.5 p.o. twice daily, Xanax 0.25 p.o. twice daily, multivitamin, Bystolic 10 mg p.o. daily, Minoxidil 5 mg p.o. nightly, Cozaar 100 mg p.o. daily, Pepcid 40 mg nightly, Atrovent as needed, Ambien 10 mg p.o. nightly. Acular LS ophthalmic drops daily, MiraLAX 17 g as needed and Chiloquin 5 mg by 1 tab p.o. q.4 hours as needed. DISCHARGE LABORATORY DATA: Last hemoglobin and hematocrit was 9.2 and 28.8. White blood cells 10,000. Platelet count 376,000. Sodium 143, potassium 4.8, BUN 23, creatinine is 1.4, glucose 134, A1c is 6.3, magnesium 1.8. Iron level was 36, ferritin level was 11. Liver enzymes negative. Cardiac enzymes were negative. Troponin was 0.016. CK was 96. ProBNP is 1946. Triglycerides 224, total cholesterol 136, LDL 77. TSH 3.68, T4 is 1.01. IMAGING: Performed yesterday on 11/19/2016. Lung scan, V/Q scan was negative for PE, lower extremity Dopplers were negative for DVT, echocardiogram showed mild MR, mild concentric left LVH with EF of 60%. It also showed a grade 1 ventricular diastolic dysfunction with mild left atrial enlargement. Abdominal pelvic CT showed severe diverticulosis coli, large chest testicular hydrocele on the left. Severe vascular disease. EKG this morning was normal sinus rhythm, no ST changes. Rate was 74. QTc was 421. DISPOSITION: Home. DISCHARGE INSTRUCTIONS: Self care. Follow up with Dr. Garcia within 1 week. If signs or symptoms of some chest pain of bleeding occur, please seek medical attention. Take the Carafate for 2 weeks. Continue Protonix. Stop aspirin. Stop Plavix. Stop Mobic. Please follow with a primary care provider in 1-2 weeks. Dictated by ELAINE Patel for Casey Gonsales MD cc: ELAINE Patel
[2016-11-20] MEDS ORDERED: ICAR-C PO SCH (21:00)
[2016-11-22] MEDS ORDERED: PROTONIX IV SCH (08:48)
== END 2016-11-20 16:11 | disposition home health service (06) ==
LOC: P.ED 01:54 → 3N 06:30
PROVIDERS: ATTEND Internal Medicine

== ENCOUNTER 2019-02-27 01:35 | Inpatient (IN) ==
[2019-02-27 02:22] LABS: BASO# 0.06 X1000 (0.0-0.2); BASO% 0.5 % (0.0-0.8); EOS# 0.25 X1000 (0.0-0.7); EOS% 1.9 % (0.0-10.0); HEMATOCRIT 38.4 % (42.0-52.0); HEMOGLOBIN 12.9 g/dL (14.0-18.0); IMM GRAN# 0.05 X1000 (0.0-0.04); IMM GRAN% 0.4 % (0.0-0.5); LYMPH# 2.15 X1000 (1.2-3.4); LYMPH% 16.3 % (20.5-51.1); MCH 29.7 PG (27-31); MCHC 33.6 g/dL (33-37); MCV 88.5 FL (81-99); MONO# 1.58 X1000 (0.11-0.59); MPV 9.9 FL (7.4-10.4); NEUT# 9.11 X1000 (1.4-6.5); NEUT% 68.9 % (42.2-75.2); PLT 361 X1000 (130-400); RBC 4.34 XMIL (4.7-6.1); RDW 13.1 % (11.5-14.5)
--- NOTE | 2019-02-27 02:29 | EKG Report ---
Test Performed on : 02/27/2019 01:42:53 AM Test Reason : CP Blood Pressure : / mmHG Vent. Rate : 085 BPM Atrial Rate : 085 BPM P-R Int : 168 ms QRS Dur : 102 ms QT Int : 378 ms P-R-T Axes : 055 -17 036 degrees QTc Int : 449 ms Sinus rhythm. with premature atrial complexes. Otherwise normal ECG When compared with ECG of 20-NOV-2016 06:12, premature atrial complexes. are now present Unconfirmed Result
[2019-02-27 02:45] LABS: POTASSIUM 4.6 mmol/L (3.5-5.1)
[2019-02-27 02:46] LABS: ALBUMIN 4.7 g/dL (3.5-5.0); CALCIUM 9.9 mg/dL (8.8-10.2); CREATININE 1.7 mg/dL (0.7-1.2); TOTAL BILIRUBIN 0.21 mg/dL (0.20-1.00); TOTAL PROTEIN 7.1 g/dL (6.3-8.3)
[2019-02-27] MEDS ORDERED: ZOFRAN IV ONE (02:46)
[2019-02-27] MEDS ORDERED: MORPHINE IV ONE (02:46)
--- NOTE | 2019-02-27 04:05 | PROVIDER DOCUMENTATION ---
This chart was entered by Roxy Araujo Scribe, acting as scribe for Martha Kohler MD. HPI-Chest Pain - General Chief Complaint: Chest Pain Stated Complaint: cp Time Seen by Provider: 02/27/19 01:38 Source: patient Allergies/Adverse Reactions: Patient Allergies Allergy/AdvReac Type Severity Reaction Status Date / Time meperidine HCl * Allergy Severe Unknown Verified 02/27/19 14:46 [From Demerol] Home Medications: Home Medication List Medication Instructions Recorded Confirmed Last Taken Type Alprazolam [Xanax] 0.25 mg PO BID 08/11/15 11/19/16 11/10/16 History Famotidine 40 mg PO QHS 08/11/15 02/27/19 1 Day Ago History ~02/26/19 Hydrocodone Bit/Acetaminophen 1 tab PO Q4H PRN 08/11/15 11/19/16 11/18/16 21:00 History [Hydrocodon-Acetaminophen 5-325] Ipratropium 0.03% Nasal [place] 1 dose INH DIRECTED 08/11/15 08/11/15 08/11/15 18:00 History [Atrovent 0.03% Nasal [place]] Ketorolac 0.4% Ophth Soln [Acular 2 drop OP DAILY 08/11/15 08/11/15 08/11/15 07:00 History Ls 0.4% Ophth Soln] Losartan Potassium [Cozaar] 100 mg PO QHS 08/11/15 02/27/19 1 Day Ago History ~02/26/19 Minoxidil 2.5 mg PO BID 08/11/15 02/27/19 1 Day Ago History ~02/26/19 Multivitamin [Multivitamins] 1 cap PO DAILY 08/11/15 02/27/19 1 Day Ago History ~02/26/19 Nebivolol HCl [Bystolic] 10 mg PO DAILY 08/11/15 02/27/19 1 Day Ago History ~02/26/19 Polyethylene Glycol 3350 [Miralax] 1 dose PO DIRECTED PRN 08/11/15 08/11/15 Unknown History Vit A/Vit C/Vit E/Zinc/Copper 1 cap PO DAILY 08/11/15 11/19/16 11/18/16 09:00 History [I-Caps Areds Softgel] Zolpidem [Ambien] 10 mg PO QHS 08/11/15 11/19/16 11/18/16 21:00 History Duloxetine [Cymbalta] 60 mg PO DAILY 11/19/16 02/27/19 1 Day Ago History ~02/26/19 Gabapentin [Neurontin] 100 mg PO TID 11/19/16 11/19/16 Unknown History Omeprazole [Prilosec] 40 mg PO DAILY 11/19/16 02/27/19 1 Day Ago History ~02/26/19 Tramadol/APAP [Ultracet 0.5 tab PO TID 11/19/16 02/27/19 1 Day Ago History 37.5MG/325Mg] ~02/26/19 Duloxetine [Cymbalta] 30 mg PO DAILY@1200 #0 capsule 11/20/16 Unknown Rx Pantoprazole [Protonix] 40 mg PO DAILY@0700 #30 tablet 11/20/16 Unknown Rx Sucralfate [Carafate Liquid] 1 gm PO TID #42 udc 11/20/16 Unknown Rx Aspirin 81 mg PO QHS 02/27/19 02/27/19 1 Day Ago History ~02/26/19 Calcium Polycarbophil [Fiber] 625 mg PO DAILY 02/27/19 02/27/19 1 Day Ago History ~02/26/19 Clopidogrel Bisulfate [Plavix] 75 mg PO DAILY 02/27/19 02/27/19 1 Day Ago History ~02/26/19 Gabapentin [Neurontin] 100 mg PO 1000,1530,2100 02/27/19 02/27/19 1 Day Ago History ~02/26/19 Iron Carbonyl/Ascorbic Acid 1 ea PO DAILY 02/27/19 02/27/19 1 Day Ago History [Icar-C] ~02/26/19 Trazodone [Desyrel] 50 mg PO DAILY 02/27/19 02/27/19 1 Day Ago History ~02/26/19 - History of Present Illness-CP Nature of Presenting Problem: Pt is 83/M presenting to the ED w/ cp that started about 6:30. The pain is lower midchest and he sts that it radiates down toward his ABD. Pt sts that he has also experienced some n/v as well as some dizziness. Location: reports: substernal Chest Pain Radiation: reports: epigastric Onset/Duration: 4-6 hours ago Timing: still present Context/Activities at Onset: reports: none Modifying Factors: improves with: nothing Associated Symptoms: reports: abdominal pain, nausea, vomiting. denies: fever/chills Similar Symptoms Previously?: No Recently Seen Here or By Another Healthcare Provider: No Review of Systems - Adult - REVIEW OF SYSTEMS - ADULT Constitutional: reports: no symptoms reported. denies: chills, fever Eyes: reports: no symptoms reported Ears, Nose, Mouth & Throat: reports: no symptoms reported Cardiovascular: reports: no symptoms reported. denies: chest pain Respiratory: reports: no symptoms reported Gastrointestinal: reports: abdominal pain, nausea, vomiting Genitourinary: reports: no symptoms reported Musculoskeletal: reports: no symptoms reported Integumentary: reports: no symptoms reported Neurological: reports: no symptoms reported. denies: dizziness/vertigo, headache/migraines Psychiatric: reports: no symptoms reported Endocrine: reports: no symptoms reported Hematologic/Lymphatic: reports: no symptoms reported Allergic/Immunologic: reports: no symptoms reported All Other Systems: Reviewed and Negative Past History - Adult - PAST MEDICAL HISTORY-ADULT Review of Records: reports: Old Records Reviewed, Nursing Assessment Review, Medications Reviewed, Social history reviewed & non-contributory. Major Childhood Illnesses: reports: denies history Genitourinary: reports: prostate cancer Neurological: reports: TIA Endocrine/Immune: reports: Diabetes Additional History: Anibal Banet Syndrome - PRIOR SURGERIES/PROCEDURES Surgical/Procedure History: reports: appendectomy, other (eye, carotid artery, lumbar epidural, left leg) - IMMUNIZATION STATUS Childhood Immunizations: See Nurse Assessment Flu Vaccine: See Nurse Assessment - FAMILY HISTORY Family History: reviewed, not pertinent - SOCIAL HISTORY Living Situation: family Physical Exam-General - PHYSICAL EXAM-ADULT Initial Vital Signs Reviewed: Yes - CONSTITUTIONAL General Appearance: appears well, alert, no apparent distress - EYES Eyes: PERRL/EOMI, pink conjunctivae - HEAD, EARS, NOSE, MOUTH & THROAT HENMT: normocephalic/atraumatic, moist mucous membranes, normal ENT inspection, TMs normal, pharynx normal - NECK Neck: non-tender, full range of motion, supple, normal inspection - RESPIRATORY Respiratory: lungs clear - CARDIOVASCULAR Cardiovascular: regular rate, rhythm - GASTROINTESTINAL (ABDOMEN) Abdominal Exam: normal bowel sounds, non tender, soft - LYMPHATIC Lymphatic: no adenopathy - MUSCULOSKELETAL Back Exam: normal inspection, no CVA tenderness, no vertebral tenderness Extremity: other (trace edema) Progress - PLAN OF CARE/RESULTS Progress/Plan/Lab Results: Laboratory Results - last 24 hr 02/27/19 02/27/19 02/27/19 02:09 02:09 02:09 WBC 13.20 H RBC 4.34 L Hgb 12.9 L Hct 38.4 L MCV 88.5 MCH 29.7 MCHC 33.6 RDW Std Deviation 13.1 Plt Count 361 MPV 9.9 Immature Gran % (Auto) 0.4 Neut % (Auto) 68.9 Lymph % (Auto) 16.3 L [place] % (Auto) 12.0 H Eos % (Auto) 1.9 Baso % (Auto) 0.5 Immature Gran # (Auto) 0.05 H Neut # (Auto) 9.11 H Lymph # (Auto) 2.15 [place] # (Auto) 1.58 H Eos # (Auto) 0.25 Baso # (Auto) 0.06 Sodium 141 Potassium 4.6 Chloride 103 Carbon Dioxide 25 Anion Gap 13 BUN 31 H Creatinine 1.7 H Estimated GFR/1.73 m2 39 BUN/Creatinine Ratio 18 Glucose 185 H Calculated Osmolality 293 Calcium 9.9 Total Bilirubin 0.21 AST 14 ALT 10 Alkaline Phosphatase 75 Creatine Kinase 98 Troponin T < 0.010 Total Protein 7.1 Albumin 4.7 Globulin 2.4 Albumin/Globulin Ratio 2.0 Triglycerides Amylase 75 Lipase 68 H Plasma Lactate Urine Source Urine Color Urine Turbidity Urine pH Ur Specific [place] Urine Protein Ur Glucose (Stick) Ur Ketones (Stick) Urine Blood Urine Nitrite Urine Bilirubin Urobilinogen Dipstick Urine Leukocytes Urine WBC (Auto) Urine RBC (Auto) U Epithel Cells (Auto) Urine Bacteria (Auto) 02/27/19 02/27/19 02/27/19 05:14 05:54 05:54 WBC RBC Hgb Hct MCV MCH MCHC RDW Std Deviation Plt Count MPV Immature Gran % (Auto) Neut % (Auto) Lymph % (Auto) [place] % (Auto) Eos % (Auto) Baso % (Auto) Immature Gran # (Auto) Neut # (Auto) Lymph # (Auto) [place] # (Auto) Eos # (Auto) Baso # (Auto) Sodium Potassium Chloride Carbon Dioxide Anion Gap BUN Creatinine Estimated GFR/1.73 m2 BUN/Creatinine Ratio Glucose Calculated Osmolality Calcium Total Bilirubin AST ALT Alkaline Phosphatase Creatine Kinase 82 Troponin T < 0.010 Total Protein Albumin Globulin Albumin/Globulin Ratio Triglycerides Amylase Lipase Plasma Lactate 1.1 Urine Source Urine Color Urine Turbidity Urine pH Ur Specific [place] Urine Protein Ur Glucose (Stick) Ur Ketones (Stick) Urine Blood Urine Nitrite Urine Bilirubin Urobilinogen Dipstick Urine Leukocytes Urine WBC (Auto) Urine RBC (Auto) U Epithel Cells (Auto) Urine Bacteria (Auto) 02/27/19 02/27/19 02/27/19 05:54 08:45 09:54 WBC RBC Hgb Hct MCV MCH MCHC RDW Std Deviation Plt Count MPV Immature Gran % (Auto) Neut % (Auto) Lymph % (Auto) [place] % (Auto) Eos % (Auto) Baso % (Auto) Immature Gran # (Auto) Neut # (Auto) Lymph # (Auto) [place] # (Auto) Eos # (Auto) Baso # (Auto) Sodium 141 Potassium 4.8 Chloride 104 Carbon Dioxide 22 L Anion Gap 15 BUN 30 H Creatinine 1.6 H Estimated GFR/1.73 m2 41 BUN/Creatinine Ratio 19 Glucose 171 H Calculated Osmolality 291 Calcium 9.6 Total Bilirubin 0.22 AST 18 ALT 11 Alkaline Phosphatase 64 Creatine Kinase Troponin T Total Protein 7.0 Albumin 4.2 Globulin 2.8 Albumin/Globulin Ratio 1.5 Triglycerides 161 H Amylase 65 Lipase 44 Plasma Lactate Urine Source CLEAN CATCH Urine Color YELLOW Urine Turbidity CLEAR Urine pH 5.5 Ur Specific [place] 1.013 Urine Protein TRACE A Ur Glucose (Stick) TRACE Ur Ketones (Stick) NEGATIVE Urine Blood NEGATIVE Urine Nitrite NEGATIVE Urine Bilirubin NEGATIVE Urobilinogen Dipstick NORMAL Urine Leukocytes NEGATIVE Urine WBC (Auto) <10 Urine RBC (Auto) <10 U Epithel Cells (Auto) <10 Urine Bacteria (Auto) NEGATIVE Orders Category Date Time Status Admit - [facility] Routine AdmDCTranf 02/27/19 10:34 Active Activity - Bed Rest with BRP ORDERED Care 02/27/19 10:34 Active Apply Mechanical Device [QM] ORDERED Care 02/27/19 10:37 Active FSBS/Accucheck Result AC + HS Care 02/27/19 10:34 Completed FSBS/Accucheck Result AC + HS Care 02/27/19 10:37 Active Intake and Output-Strict ORDERED Care 02/27/19 10:34 Active Update & Confirm Home Medicati ROUTINE Care 02/27/19 10:37 Active Vital Signs Order Q 4-HR ASSESS Care 02/27/19 10:34 Active Z-Document. for Tele Applied ORDERED Care 02/27/19 10:36 Completed NPO Diet 02/27/19 10:35 Completed CHEST-1 VIEW [RAD] Stat Exams 02/27/19 01:[address] ABDOMEN/PELVIS W/O CONTRAST [CT] Stat Exams 02/27/19 04:03 Completed US ABDOMEN-COMPLETE [US] Stat Exams 02/27/19 10:36 Completed AMYLASE [CHEM] Stat Lab 02/27/19 02:09 Completed AMYLASE [CHEM] Stat Lab 02/27/19 05:54 Completed CBC WITH DIFF [HEME] Routine Lab 02/28/19 06:00 Ordered CBC WITH ELECTRONIC DIFF [HEME] Stat Lab 02/27/19 02:09 Completed CK PROFILE [SP CHEM] Stat Lab 02/27/19 02:09 Completed CK PROFILE [SP CHEM] Stat Lab 02/27/19 05:54 Completed COMPREHENSIVE METABOLIC PANEL [CHEM] Routine Lab 02/28/19 06:00 Ordered COMPREHENSIVE METABOLIC PANEL [CHEM] Stat Lab 02/27/19 02:09 Completed COMPREHENSIVE METABOLIC PANEL [CHEM] Stat Lab 02/27/19 05:54 Completed LACTATE, PLASMA [CHEM] Stat Lab 02/27/19 05:14 Completed LIPASE [CHEM] Stat Lab 02/27/19 02:09 Completed LIPASE [CHEM] Stat Lab 02/27/19 05:54 Completed TRIGLYCERIDES [LIPIDS] Stat Lab 02/27/19 09:54 Completed TROPONIN T Stat Lab 02/27/19 02:09 Completed TROPONIN T Stat Lab 02/27/19 05:54 Completed UA NIMS W/REFLEX CULT [URINALYSIS] Stat Lab 02/27/19 08:45 Completed 0.9% Sodium Chloride Inj [Ns] 1,000 ml Med 02/27/19 10:45 Discontinued IV 75 mls/hr Esomeprazole [Nexium] Med 02/27/19 10:45 Active 40 mg IV Q24H Hydralazine [Apresoline] Med 02/27/19 10:38 Active 10 mg IV Q4H PRN PRN Hydromorphone [Dilaudid] Med 02/27/19 05:16 Discontinued 2 mg IV NOW ONE Insulin Lispro [Humalog] Med 02/27/19 11:00 Active See Protocol SUBQ 0700,1100,1600,2100 Morphine Med 02/27/19 02:46 Discontinued 4 mg IV NOW ONE Ondansetron [Zofran] Med 02/27/19 02:46 Discontinued 4 mg IV NOW ONE Ondansetron [Zofran] Med 02/27/19 10:34 Active 4 mg IV Q4H PRN PRN Sodium Chloride 0.9% Med 02/27/19 10:45 Active 5 ml INJ DIRECTED Incentive Spirometer Q4HR.AWAKE [facility] 02/27/19 13:00 Completed Incentive Spirometer Q4HR.AWAKE [facility] 02/27/19 17:00 Completed Incentive Spirometer Q4HR.AWAKE [facility] 02/27/19 21:00 Completed Incentive Spirometer Q4HR.AWAKE [facility] 02/28/19 01:00 Completed Incentive Spirometer Q4HR.AWAKE [facility] 02/28/19 05:00 Completed Incentive Spirometer Q4HR.AWAKE [facility] 02/28/19 09:00 Completed Incentive Spirometer Q4HR.AWAKE [facility] 02/28/19 13:00 Completed Incentive Spirometer Q4HR.AWAKE [facility] 02/28/19 17:00 Completed Incentive Spirometer Q4HR.AWAKE [facility] 02/28/19 21:00 Completed Incentive Spirometer Q4HR.AWAKE [facility] 03/01/19 01:00 Completed Oxygen Device Routine [facility] 02/27/19 10:37 Completed Telemetry [OM.EQ] Routine Ot 02/27/19 10:34 Active EKG [EKG] Stat Ther 02/27/19 01:37 Draft Transfer/Admit Order [TRANSFER] Routine Transfer 02/27/19 10:40 Completed Result Diagrams: 02/27/19 02:09 02/27/19 05:54 - REASSESSMENT Reassessment #1 Status: unchanged Reassessment Comment: WILL ADMINISTER DIALUDID - CONSULTS/PCP/HOSPITALIST Notification #1 *Consult/PCP/Hospitalist*: DR TORRES Time Discussed: 20:00 Reason/Comments: ADMIT FOR FURTHER W/U. DR TORRES TO INFORM MORNING TEAM Consult Disposition: Admit Departure - Departure Date of Disposition Decision: 02/27/19 Time of Disposition Decision: 06:15 DIAGNOSIS: Abdominal pain, RUQ abdominal pain, Epigastric abdominal pain Disposition: ADMITTED INPATIENT 09 Certified Medical Emergency: Emergent Condition: Stable - Critical Care Note This patient required my direct & personal management of CC.: No Attestation - Physician/ ARON Attestation Patient care was provided by Advanced Practice Provider:: No The physician spent face to face time with patient:: Yes Advanced Practice Provider documentation review:: Supervising physician onsite and consulted in the evaluation and care of this patient. The physician did have a face to face encounter with the patient. This chart was documented by the indicated scribe, (Roxy Araujo, Scribe) and accurately reflects the services I performed and decisions made by me, Martha Kohler MD, as attested by the provider's signature.
--- NOTE | 2019-02-27 04:51 | Diag Imaging Result Doc PS360 ---
EXAM: CHEST-1 VIEW HISTORY: cp TECHNIQUE: Chest single view COMPARISON: 11/19/2016 FINDINGS: The lungs are well expanded. The heart is not enlarged. The vessels are not distended. There are no infiltrates. No effusion identified. IMPRESSION: Negative exam. Electronically signed by Riley Monk 02/27/2019 4:49 AM
[2019-02-27] MEDS ORDERED: DILAUDID IV ONE (05:16)
--- NOTE | 2019-02-27 09:27 | Diag Imaging Result Doc PS360 ---
EXAM: CT ABDOMEN/PELVIS W/O CONTRAST INDICATION: ABD PAIN TECHNIQUE: This exam was performed using automated exposure control, adjustment of mA or kV according to patient size, and/or use of iterative reconstruction technique. COMPARISON: 11/19/2016 FINDINGS: There is mild bibasilar subsegmental atelectasis and there is trace pleural fluid on the left. The gallbladder is distended. No radiopaque gallstones or pericholecystic inflammatory changes appreciated. There is no evidence of significant biliary dilatation. The liver, spleen, pancreas, and adrenal glands are essentially unremarkable. There are multiple calcifications at the renal saleem bilaterally. Most of not all of these appear to represent vascular calcifications. There is a 1.7 cm low dense nodule arising from the upper pole of the right kidney that is even less dense than the previous study. This probably represents a cyst containing blood products. There is no hydronephrosis. The urinary bladder is grossly unremarkable. There are bilateral inguinal hernias, larger on the left. They both contain fluid. There is advanced but uncomplicated sigmoid colonic diverticulosis. There is milder diverticulosis of the ascending colon. The remainder of the GI tract is essentially unremarkable. There is extensive aortoiliac atherosclerotic calcification. There is a right iliac stent. There is a stable infrarenal abdominal aortic aneurysm measuring up to 3.7 cm in diameter. No focal inflammatory changes or free abdominal gas is identified. There is multilevel spondylosis. There are degenerative changes of both hips. IMPRESSION: 1.Distended gallbladder with no pericholecystic inflammatory changes. 2.Bilateral inguinal hernias containing fluid, larger on the left. 3.Other incidental/nonacute findings detailed above. Electronically signed by Grabiel Mancera 02/27/2019 9:24 AM
[2019-02-27 09:31] LABS: URINE SOURCE CLEAN CATCH
[2019-02-27 09:57] LABS: BILIRUBIN URINE NEGATIVE (NEGATIVE); BLOOD URINE NEGATIVE (NEGATIVE); COLOR YELLOW; GLUCOSE URINE TRACE mg/dL (NEGATIVE); KETONE URINE NEGATIVE (NEGATIVE); LEUKOCYTES URINE NEGATIVE (NEGATIVE); NITRITE URINE NEGATIVE (NEGATIVE); PH URINE 5.5; PROTEIN URINE TRACE mg/dL (NEGATIVE); SP GRAVITY URINE 1.013; TURBIDITY URINE CLEAR (CLEAR); UROBILINOGEN URINE NORMAL (NORMAL)
[2019-02-27 09:59] LABS: UR EPITHELIAL CELLS <10 /HPF (<10); URINE BACTERIA NEGATIVE /HPF; URINE RBC <10 /HPF (<10); URINE WBC <10 /HPF (<10)
[2019-02-27 10:32] LABS: POTASSIUM 4.8 mmol/L (3.5-5.1)
[2019-02-27 10:33] LABS: ALB/GLOB RATIO 1.5; ALBUMIN 4.2 g/dL (3.5-5.0); CALCIUM 9.6 mg/dL (8.8-10.2); CREATININE 1.6 mg/dL (0.7-1.2); TOTAL BILIRUBIN 0.22 mg/dL (0.20-1.00)
[2019-02-27] MEDS ORDERED: APRESOLINE IV PRN (10:38)
[2019-02-27] MEDS ORDERED: NS 1,000 ML IV SCH (10:45)
[2019-02-27] MEDS ORDERED: SODIUM CHLORIDE 0.9% INJ SCH (10:45)
[2019-02-27] MEDS ORDERED: NEXIUM IV SCH (10:45)
--- NOTE | 2019-02-27 11:55 | Diag Imaging Result Doc PS360 ---
EXAM: US ABDOMEN-COMPLETE HISTORY: Abd pain/ distention, Distended GB, vomiting TECHNIQUE: Abdominal ultrasound COMPARISON: CT performed earlier FINDINGS: The pancreas is obscured. The aorta and inferior vena cava are poorly seen. No focal hepatic abnormality. No hydronephrosis to the right kidney. The gallbladder is distended. There are stones within it. The wall is not thickened. Normal left kidney. No hydronephrosis. Normal spleen. No ascites. IMPRESSION: Distended gallbladder containing multiple stones. Electronically signed by Riley Monk 02/27/2019 11:52 AM
[2019-02-27] MEDS: ZOFRAN IV PRN (13:37)
[2019-02-27] MEDS: MORPHINE IV PRN (13:39)
[2019-02-27] MEDS: HUMALOG SUBQ SCH ×3 (14:44→22:47)
[2019-02-27] MEDS ORDERED: OFIRMEV 1000 MG/ISOTONIC SOLN 1,000 MG/100 ML BOTTLE IV PRN (16:49)
--- NOTE | 2019-02-27 17:10 | HISTORY AND PHYSICAL ---
CHIEF COMPLAINT: Abdominal pain epigastric pain, nausea, vomiting. HISTORY OF PRESENT ILLNESS: This is a very pleasant 83-year-old gentleman with a history of DVT, prostate cancer in 2004, diabetes mellitus diet controlled, who presents to the emergency room complaining of abdominal pain that started about 5 o'clock yesterday evening. He states that his pain started in his lower ribcage, bilateral upper quadrants as well as epigastric area. It was accompanied by nausea and vomiting. He described it as a crampy type pain. He denied any black or bloody vomitus or stools, or any prior episodes. He did state that this started after eating. It was a sudden onset. The pain did not subside until after he received Dilaudid in the emergency room. PAST MEDICAL HISTORY: 1. Prostate cancer [place] [address] Montague. 2. Cerebrovascular accident with no residual. 3. Diabetes mellitus diet controlled. PAST SURGICAL HISTORY: 1. Eye surgery. 2. Appendectomy. 3. Carotid arteries. 4. Lumbar surgery. SOCIAL HISTORY: He smokes about a half a pack a day. Denies alcohol or illicit drug use. ALLERGIES: Demerol which causes an unknown reaction. HOME MEDICATIONS: A list will be obtained by the nursing staff and once verified we will review and restart as appropriate. REVIEW OF SYSTEMS: Discussed with the patient with pertinent positives stated in HPI. He denied any syncope, dizziness any palpitations, any shortness of breath, cough, any fever, chills, night sweats, recent weight loss or weight gain, any black or bloody vomitus or stools, any diarrhea, constipation, hematuria, dysuria, frequency, urgency. PHYSICAL EXAMINATION: GENERAL: This is an 83-year-old gentleman who is lying on the bed in the emergency room in no distress. VITAL SIGNS: Blood pressure is 123/67 with a heart rate of 96, respirations are 18, temperature is 99.1 degrees with O2 saturation 9700%. EYES: EOMs are intact. Sclerae are anicteric. HEENT: Head is normocephalic, atraumatic. Mucous membranes are moist. NECK: Supple, trachea midline. CARDIOVASCULAR: Regular rate and rhythm. S1 and S2 appreciated. He has no lower extremity edema. Calves are nontender bilateral with peripheral pulses palpable x4 extremities. PULMONARY: Breath sounds are clear. No increased work of breathing noted. Chest rises and falls symmetric respiration. Chest wall is nontender to palpation. GASTROINTESTINAL: Abdomen is soft, nondistended. He is very tender to the right upper quadrant with what looks slightly less tenderness to the epigastric and umbilical area. He has bowel sounds in all 4 quadrants. GENITOURINARY: No CVA or suprapubic tenderness. NEUROLOGIC: He is a sedated after pain medication, but he is oriented x3. SKIN: Warm and dry. LABS: 1. WBC is 13.2 with hemoglobin 12.9, hematocrit 38.4, platelets of 361,000. Sodium is 141, potassium 4.6, BUN 31, creatinine 17 with a glucose of 185. Troponin is negative. Lipase is 68 with amylase 75. Urinalysis is essentially negative. 2. Chest x-ray: Lungs are well expanded. Heart is not enlarged. Vessels are not distended. There are no infiltrates no effusion identified. 3. CT of the abdomen and pelvis without contrast reveals a distended gallbladder with no pericholecystic inflammatory changes. Bilateral inguinal hernias containing fluid, larger on the left. No evidence of significant biliary dilatation. Liver, spleen, pancreas and adrenal glands are essentially unremarkable. There is a 1.7 cm low dense nodule arising from the upper pole of the right kidney that is less dense than the previous study, probably represents a cyst containing blood products. No hydronephrosis. Bladder is grossly unremarkable. There is advanced been uncomplicated sigmoid colonic diverticulosis with milder diverticulosis of the descending colon. There is a right iliac stent. There is a stable infrarenal abdominal aortic aneurysm measuring up to 3.7 cm. No inflammatory changes or free abdominal gas is identified. ASSESSMENT AND PLAN: 1. Right upper quadrant pain in a patient with a distended gallbladder on CT scan. We will continue giving pain medications. We will give IV hydration. We will obtain an ultrasound of the abdomen. He will remain NPO. We will consult general surgery. 2. Nausea and vomiting. He will be NPO. We will give antiemetics. 3. Leukocytosis very likely secondary to #1. 4. Hypertension. Hydralazine IV p.r.n. 5. Diabetes mellitus. Pattern blood glucose with sliding scale insulin. 6. Bilateral inguinal hernias. Aware. 7. Stable infrarenal abdominal aortic aneurysm measuring up 3.7 cm. Aware. 8. 1.7 cm renal cyst. The patient can follow up outpatient with urology. 9. Chronic kidney disease. The patient's creatinine is 1.7. In reviewing his records creatinine has been 1.5 to 2.2 since 2015. We will trend his creatinine renal dose medications as appropriate. We will continue IV hydration. Discussed with Dr Gallagher Further treatments pending hospital course. Dictated by ELAINE Barr for Vimal Gallagher MD cc: ELAINE Barr MD [facility]
[2019-02-27] MEDS: ZOSYN 2.25 GM in NS 50 ML IV SCH ×4 (17:20→22:47)
[2019-02-27] MEDS ORDERED: QUELICIN (DOSE) ONE (17:27)
[2019-02-27] MEDS ORDERED: NORCURON ONE (17:27)
[2019-02-27] MEDS ORDERED: SODIUM CHLORIDE 0.9% 10 ML ONE (17:27)
[2019-02-27] MEDS ORDERED: DIPRIVAN 1% ONE (17:27)
[2019-02-27] MEDS ORDERED: XYLOCAINE-MPF 2% ONE (17:27)
[2019-02-27] MEDS ORDERED: LR 1,000 ML ONE (17:33)
[2019-02-27] MEDS ORDERED: SENSORCAINE 0.5%-EPI 1:200,000 ONE (17:33)
[2019-02-27] MEDS ORDERED: SODIUM CHLORIDE 0.9% ONE (17:33)
[2019-02-27] MEDS ORDERED: NEOSTIGMINE ONE (18:38)
[2019-02-27] MEDS ORDERED: ROBINUL ONE (18:38)
[2019-02-27] MEDS ORDERED: DECADRON ONE (18:54)
[2019-02-27] MEDS ORDERED: ZOFRAN ONE (18:54)
[2019-02-27] MEDS: DILAUDID ONE ×2 (19:39→19:42)
--- NOTE | 2019-02-27 19:46 | CONSULTATION ---
DATE OF CONSULTATION: 02/27/2019 Mr. Loc Sexton is an 83-year-old white male who has had a 3-day history of chest, epigastrium and right upper quadrant pain. It started during the weekend but it has become worse and he presented to our emergency department about 1 a.m. this morning. He has been evaluated with CT scan and ultrasound which suggested a distended gallbladder with stones and he has persistent right upper quadrant pain requiring IV pain medication. We were asked to evaluate him for possible cholecystectomy. PAST MEDICAL HISTORY: In July 2018 he fell twice, hit his head and became disoriented. He had a colonoscopy in November 2016, colon ulcer that he was hospitalized for in October and November 2016, transient ischemic attack in September 2016, cataract removed from his right eye by Dr. 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 Hester 2010, left carotid artery surgery June 2011, right carotid artery surgery December 2005, prostate cancer surgery June, appendectomy 1972. MEDICATIONS: Vitamins, Bystolic 10 mg 1 time daily in the morning, Plavix daily his last dose was Wednesday, minoxidil 2.5 mg b.i.d., Ultracet 3 times daily, Neurontin 100 mg 3 times daily, Cymbalta 60 mg at 3:30 p.m., Prilosec 40 mg 3:30 p.m., Cozaar at bedtime, aspirin 81 mg at bedtime, Pepcid 40 mg at bedtime, trazodone 50 mg for sleep. ALLERGIES: No known drug allergies. SOCIAL HISTORY: His family doctor is Nate Whiting, his family was at the bedside including his . REVIEW OF SYSTEMS: 14 point review of systems was performed and was essentially negative except for the history of present illness. FAMILY HISTORY: Noncontributory. On exam Mr. Sexton is sedated somewhat, he is an older gentleman legally blind. No jaundice, no oral lesions. No cervical or supraclavicular lymphadenopathy. His heart has a regular rate. Lungs were clear to auscultation and percussion bilaterally. His abdomen was slightly distended but not tightly. He was tender in the right upper quadrant. I could not palpate a mass. He has well-healed incision just at his umbilicus, no evidence of hernia. Rectal exam was not performed. He has palpable femoral pulses. No ischemic ulcers. Lower extremities no significant edema. Has no focal deficits although he is sedated. CT scan of his abdomen and pelvis suggested distended gallbladder. No other pathology except a 3.7 aortic aneurysm. Ultrasound showed distended gallbladder with stones. He is tender in his right upper quadrant. IMPRESSION: Acute cholecystitis. PLAN: Laparoscopic, possible open cholecystectomy this evening. I have discussed the procedure in detail with the patient, his and daughter at the bedside. He knows he is at increased risk for bleeding because of his Plavix and aspirin. We specifically discussed injury to intraabdominal contents for trocar placement, bleeding, infection, bile leak requiring reoperation for drainage, conversion of laparoscopic to open cholecystectomy. They understand he is at a higher incidence of open cholecystectomy because of acute cholecystitis. They understand the risks and the need to proceed, they want to proceed. cc: Farzana Dang MD [facility]
--- NOTE | 2019-02-27 21:07 | Diag Imaging Result Doc PS360 ---
EXAM: OPERATIVE CHOLANGIOGRAM INDICATION: ACUTE CHOLECYSTITIS TECHNIQUE: COMPARISON: None. FINDINGS: Two spot fluoroscopic images of the opacified common bile duct were provided, which were performed during cholecystectomy by Dr. Bruce Dang. The common bile duct appears normal in caliber. No discrete filling defect or stricture is identified. Contrast is seen passing normally into small bowel. IMPRESSION: As above. Please correlate with live fluoroscopic imaging. Electronically signed by Grabiel Mancera 02/27/2019 9:04 PM
--- NOTE | 2019-02-27 21:52 | OPERATIVE NOTE ---
PROCEDURE DATE: 02/27/2019 PREOPERATIVE DIAGNOSIS: Acute gangrenous cholecystitis. POSTOPERATIVE DIAGNOSIS: Acute gangrenous cholecystitis with cholelithiasis. PRINCIPAL PROCEDURE: Laparoscopic cholecystectomy with intraoperative cholangiogram. SURGEON: Farzana Dang MD. ANESTHESIA: General in addition to local anesthetic. ESTIMATED BLOOD LOSS: 25 mL. DRAINS: None. INDICATIONS: Mr. Loc Sexton Jr. is an 83-year-old white male patient Dr. Nate Whiting. He was admitted early this morning with abdominal pain localizing to his right lower quadrant. This pain has been persistent requiring IV narcotics and was felt that he had acute cholecystitis. FINDINGS: He had acute gangrenous cholecystitis with cholelithiasis. His liver appeared to be normal. We did do an intraoperative cholangiogram, which showed free flow of the dye into the duodenum without evidence of extrahepatic stones or obstruction. No other intra-abdominal pathology was noted. We felt we did the operation safely. DESCRIPTION OF PROCEDURE: The patient was brought to the operating room, placed supine, received general anesthesia, was intubated. His abdomen was prepped and draped in a sterile field. We made a small incision below the umbilicus using a 15 blade scalpel. Veress needle was introduced into the abdomen. Pneumoperitoneum was established. The Veress needle was removed. I placed 11 mm trocar through this incision into the abdomen. The camera was placed through this port and the abdomen was explored for injury, there was none. Three other trocars were placed along the right costal margin under direct vision the camera. I placed an 11 mm trocar just to the right of the midline and two 5 mm trocars in our midclavicular and anterior axillary lines. I had to take down the colon off the top of the gallbladder bluntly initially and then I used a needle and suction to decompress the gallbladder. Then I used a grasper with teeth to grab the fundus of the gallbladder and retracted superiorly along with the right lobe of the liver. Another grasper was used to grab the body of the gallbladder and the triangle of Calot was bluntly dissected. We identified the cystic duct. I placed a clip at the cystic duct gallbladder junction. I made a small incision in the cystic duct using hook scissors and a taut intraoperative cholangiogram catheter was used to perform the cholangiogram with the findings above. Once cholangiogram was completed, the catheter was removed and 2 clips were placed proximally on the cystic duct. I divided the cystic duct using hook scissors. I identified the cystic artery. A clip was placed distally, 2 proximally and it was divided using hook scissors. The spatula cautery was used to remove the gallbladder from the liver bed. I did use an endobag to remove the gallbladder and its stones through our umbilical incision which I did enlarged slightly to get the gallbladder out. I placed the trocar back through this incision and the area of operation was thoroughly inspected, irrigated, and the irrigation was removed with suction. There was no evidence of ongoing bleeding or bile leak. I decided against leaving a drain. All trocars removed under direct vision the camera. The pneumoperitoneum was allowed to dissipate. I used [id number] 0 Vicryl stitches to reapproximate the fascia at the umbilicus. All skin was closed with 4-0 Monocryl subcuticular stitches. Steri-Strips were applied. He tolerated the procedure well with plans for him to go the recovery room and then return to the floor. cc: Farzana Dang MD
[2019-02-27] MEDS: LR 1,000 ML IV SCH (23:37)
[2019-02-28] MEDS: MORPHINE IV PRN (02:08)
[2019-02-28] MEDS: ZOSYN 2.25 GM in NS 50 ML IV SCH ×4 (05:13→22:56)
[2019-02-28] MEDS: HUMALOG SUBQ SCH ×4 (06:15→22:29)
[2019-02-28 08:19] LABS: ALB/GLOB RATIO 1.3; ALBUMIN 3.5 g/dL (3.5-5.0); CALCIUM 9.4 mg/dL (8.8-10.2); CREATININE 2.2 mg/dL (0.7-1.2); POTASSIUM 5.3 mmol/L (3.5-5.1); TOTAL BILIRUBIN 0.8 mg/dL (0.20-1.00); TOTAL PROTEIN 6.2 g/dL (6.3-8.3)
--- NOTE | 2019-02-28 08:33 | PROGRESS NOTE ---
DATE: 02/28/2019 Mr. Loc Sexton is postop day 1, laparoscopic cholecystectomy with intraoperative cholangiogram for gangrenous acute cholecystitis with cholelithiasis. His cholangiogram was normal. Clinically, he is improved today. He is not confused. He does not have persistent right upper quadrant pain. He is sore from our trocar sites. His heart rate is 96, blood pressure 121/57, O2 saturation 100%, he is afebrile. We did keep him on IV Zosyn, renal dose. He is on 75 mL an hour of normal saline. We have stopped his Plavix temporarily. Will advance his diet as tolerated. We need to increase his activity, make sure that he is voiding satisfactorily. We need Senior Facilities Manager to start some discharge planning, whether he will return home or rehab. cc: Farzana Dang MD
[2019-02-28 08:49] LABS: BASO# 0.03 X1000 (0.0-0.2); BASO% 0.1 % (0.0-0.8); HEMATOCRIT 33.6 % (42.0-52.0); HEMOGLOBIN 11.1 g/dL (14.0-18.0); IMM GRAN# 0.12 X1000 (0.0-0.04); IMM GRAN% 0.5 % (0.0-0.5); LYMPH# 1.32 X1000 (1.2-3.4); LYMPH% 5.5 % (20.5-51.1); MCH 30.1 PG (27-31); MCV 91.1 FL (81-99); MONO# 2.87 X1000 (0.11-0.59); MONO% 11.9 % (1.7-9.3); MPV 10.4 FL (7.4-10.4); NEUT# 19.78 X1000 (1.4-6.5); PLT 325 X1000 (130-400); RBC 3.69 XMIL (4.7-6.1); RDW 13.8 % (11.5-14.5); WBC 24.12 X1000 (4.8-10.8)
[2019-02-28 09:03] LABS: BANDS 9 % (0-1); LYMPHS 6 % (21-51); MONO 8 % (1-9); SEGS 77 % (42-75)
[2019-02-28] MEDS: ULTRACET 37.5MG/325MG PO SCH ×3 (09:42→22:26)
[2019-02-28] MEDS: CYMBALTA PO SCH (09:43)
[2019-02-28] MEDS: LONITEN PO SCH ×2 (09:43→22:30)
[2019-02-28] MEDS: BYSTOLIC PO SCH (09:43)
--- NOTE | 2019-02-28 14:11 | PROGRESS NOTE ---
DATE: 02/28/2019 SUBJECTIVE: Today Mr. Sexton refers to be doing a whole lot better. His granddaughter was at the bedside at the time of the encounter. Mr. Sexton underwent laparoscopic cholecystectomy yesterday. This morning he refers that the abdominal pain is significantly improved. OBJECTIVE: Vital signs: Blood pressure 127/51, pulse of 92, respirations 16, temperature 98.6 degrees. General: Mr. Sexton is an 83-year-old elderly male. He is in bed, no distress. HEENT: Mucosa is pink and moist. Anicteric. Acyanotic. Neck: Supple. Chest: Clear to auscultation. No crepitations. No rhonchi. Cardiovascular: Regular rate and rhythm. Abdomen: Soft, minimally distended. There is in a new dressing over the abdominal wall suggestive of the laparoscopic entry. Extremities: No pedal edema. CT MRI TECHNOLOGIST: Patient is awake, alert, and oriented. No focal neurological deficit. LABORATORY DATA: WBC is up to 24.12, hemoglobin is 11.1, platelet count of 325,000. Chemistry: Sodium is 141, potassium is 5.3, chloride is 105, bicarb is 24, creatinine is up to 2.2, glucose is 197. The operative report: Postoperative diagnosis shows acute gangrenous cholecystitis with cholelithiasis. ASSESSMENT: 1. Right upper quadrant pain secondary to acute gangrenous cholecystitis with cholelithiasis. Patient is status post laparoscopic cholecystectomy with intraoperative cholangiogram which was normal. Today is day 1 postop. The patient has been started on clear liquids. He seems to be tolerating well. 2. Sepsis on presentation secondary to acute cholecystitis. Patient is on IV antibiotics. White cell count went up a little bit today but the patient is on adequate antimicrobial therapy. We are going to keep eye on this. 3. Acute on chronic renal failure with baseline creatinine of 1.5 - 1.6. We will continue with gentle IV fluids and monitor the renal function. We will also avoid any nephrotoxin. 4. Hypertension and diabetes, stable. 5. Urinary retention. Since after the surgery I am told that Mr. Sexton has been having issue voiding. This morning when I went to evaluate him he did have the urinal in between his legs and he was peeing okay. However later on today, I was told that he was retaining over 400 mL. We are going to put him on Flomax, get him to be mobile and see if that will help with his urination. PLAN: So in general Mr. Sexton is day 1 post laparoscopic cholecystectomy with intraoperative cholangiogram. He seems to be doing well. All his other comorbidities are being managed. After the surgery this morning he seems to be having a little difficulty passing his urine. We are going to start him on Flomax and also to get him to be mobile and physical therapy to walk him around and see if he is able to pee freely. DISPOSITION: I think Mr. Sexton can potentially be discharged tomorrow if it is okay with surgery and he is hemodynamically stable. cc: Vimal Gallagher MD
[2019-02-28] MEDS: LR 1,000 ML IV SCH (15:06)
[2019-02-28] MEDS ORDERED: DESYREL PO SCH (21:00)
[2019-02-28] MEDS ORDERED: COZAAR PO SCH (21:00)
[2019-02-28] MEDS: ASPIRIN PO SCH (22:28)
[2019-02-28] MEDS: PEPCID PO SCH (22:28)
[2019-02-28] MEDS: FLOMAX PO SCH (22:29)
[2019-03-01] MEDS: ZOSYN 2.25 GM in NS 50 ML IV SCH ×4 (04:09→21:59)
[2019-03-01] MEDS: HUMALOG SUBQ SCH ×4 (06:06→22:23)
[2019-03-01 07:22] LABS: BASO# 0.03 X1000 (0.0-0.2); BASO% 0.2 % (0.0-0.8); EOS# 0.13 X1000 (0.0-0.7); EOS% 0.8 % (0.0-10.0); HEMATOCRIT 31.7 % (42.0-52.0); HEMOGLOBIN 10.2 g/dL (14.0-18.0); IMM GRAN# 0.04 X1000 (0.0-0.04); IMM GRAN% 0.3 % (0.0-0.5); LYMPH# 1.43 X1000 (1.2-3.4); LYMPH% 9.3 % (20.5-51.1); MCH 29.4 PG (27-31); MCHC 32.2 g/dL (33-37); MCV 91.4 FL (81-99); MONO# 2.03 X1000 (0.11-0.59); MONO% 13.2 % (1.7-9.3); MPV 10.2 FL (7.4-10.4); NEUT# 11.67 X1000 (1.4-6.5); NEUT% 76.2 % (42.2-75.2); PLT 279 X1000 (130-400); RBC 3.47 XMIL (4.7-6.1); RDW 13.7 % (11.5-14.5); WBC 15.33 X1000 (4.8-10.8)
[2019-03-01 07:41] LABS: ALB/GLOB RATIO 1.1; ALBUMIN 3.3 g/dL (3.5-5.0); CALCIUM 9.2 mg/dL (8.8-10.2); CREATININE 2.3 mg/dL (0.7-1.2); POTASSIUM 4.9 mmol/L (3.5-5.1); TOTAL BILIRUBIN 0.61 mg/dL (0.20-1.00); TOTAL PROTEIN 6.2 g/dL (6.3-8.3)
--- NOTE | 2019-03-01 08:35 | PROGRESS NOTE ---
DATE: 03/01/2019 SUBJECTIVE: Mr. Loc Sexton is an 83-year-old white male, who is now postop day 2 from laparoscopic cholecystectomy for gangrenous gallbladder. Evidently he was up all night confused, pulling out some IVs, and urinating frequently. He does not have a Marti catheter tube in place. We did give him a clear liquid diet. His abdomen is slightly distended. Trocar sites were intact. He does not have any significant abdominal pain postsurgical. His heart rate is 92, blood pressure 122/46, O2 saturation is 100%. He has no work of breathing. He is afebrile. He is on renal dose IV Zosyn because of a gangrenous gallbladder. His white blood cell count went from 24 to 15, hematocrit is 32%. BUN and creatinine are 36 and 2.3. Liver function tests are normal. PLAN: We will advance his diet to a full liquid diet. He needs to get up in a chair as long as it is safe for him to do so. Physical therapy has been consulted. cc: Farzana Dang MD
[2019-03-01] MEDS: BYSTOLIC PO SCH (09:22)
[2019-03-01] MEDS: LONITEN PO SCH (09:22)
[2019-03-01] MEDS: ULTRACET 37.5MG/325MG PO SCH ×3 (09:23→17:09)
[2019-03-01] MEDS: CYMBALTA PO SCH (09:23)
[2019-03-01] MEDS: LR 1,000 ML IV SCH ×2 (09:27→22:22)
[2019-03-01] MEDS: NICODERM PATCH TD SCH (11:40)
[2019-03-01] MEDS ORDERED: NS 1,000 ML IV SCH (16:30)
--- NOTE | 2019-03-01 20:06 | PROGRESS NOTE ---
DATE: 03/01/2019 INTERVAL HISTORY: The patient had some confusion and agitation overnight but improved this morning, sleepy but arousable, responses appropriate. He remains afebrile. Tolerating full liquid diet thus far. Some concern for urine retention yesterday but appears to be urinating okay today. Ins and outs reasonable. Bladder scan without any significant retention. REVIEW OF SYSTEMS: Twelve-point review of systems negative except as per interval history. LABORATORY DATA: WBC 15.3, hemoglobin 10.2, hematocrit 31.7, platelets 279,000. Sodium 134, potassium 4.9, bicarb 25, BUN 36, creatinine 2.3, glucose 138. VITALS: T-max 99.5 degrees, pulse 79, respirations 22, blood pressure 114/52, O2 saturation 94%. PHYSICAL EXAMINATION: General: No acute distress. Vitals: As above. HEENT: Normocephalic and atraumatic. Slightly dry mucous membranes. Neck: No cervical adenopathy. Cardiovascular: Regular rate and rhythm. No murmurs noted. Pulmonary: Clear to auscultation bilaterally. No wheezing, rales, or rhonchi. Abdomen: Soft. Minimal expected tenderness around surgical sites. Bowel sounds positive. Extremities: Peripheral pulses intact. No clubbing or cyanosis. Neurologic: Cranial nerves grossly intact. Mild global weakness but no focal deficits identified. Psychiatric: Patient asleep but easily arousable. Responses are appropriate. Skin: No new rashes or lesions identified. Surgical incisions without surrounding erythema or drainage. ASSESSMENT AND PLAN: 1. Acute cholecystitis, right upper quadrant pain. The patient is status post lap cholecystectomy. He is on full liquids and tolerating thus far, although p.o. intake is not fantastic. Surgery following, further recommendations pending. Continue on Zosyn and monitor. 2. Acute kidney injury on chronic kidney disease 3. Baseline creatinine appears to be approximately 1.6. Has trended up over the last couple days to 2.3. BUN elevated, maybe trying to get a little dry. We will give some gentle fluids and monitor. If it fails to improve, then we will consider Nephrology consult. 3. Hypertension, reasonable control so far. Blood pressure actually getting a little on the soft side. We will hold minoxidil and losartan. Monitor. 4. Likely mild to moderate dementia with some owning. On questioning the family does endorse some occasional confusion in the evening and some memory issues. Likely with some underlying dementia. Pretty with it right now but was reportedly confused overnight. We will add some low-dose Seroquel as p.r.n. medication if he has issues with this again. 5. Generalized weakness. PT evaluation pending to see if the patient is appropriate to go home versus to rehab. 6. Tobacco abuse. Patient offered nicotine patch and counseled on cessation.
[2019-03-01] MEDS: PEPCID PO SCH (21:59)
[2019-03-01] MEDS: SEROQUEL PO PRN (21:59)
[2019-03-01] MEDS: DESYREL PO PRN (21:59)
[2019-03-01] MEDS: FLOMAX PO SCH (22:00)
[2019-03-01] MEDS: ASPIRIN PO SCH (22:00)
[2019-03-02] MEDS: ZOSYN 2.25 GM in NS 50 ML IV SCH ×4 (05:47→23:35)
[2019-03-02] MEDS: HUMALOG SUBQ SCH ×4 (06:30→21:36)
[2019-03-02 08:01] LABS: BASO# 0.05 X1000 (0.0-0.2); BASO% 0.4 % (0.0-0.8); EOS# 0.39 X1000 (0.0-0.7); EOS% 2.8 % (0.0-10.0); HEMATOCRIT 37.3 % (42.0-52.0); HEMOGLOBIN 12.3 g/dL (14.0-18.0); IMM GRAN# 0.05 X1000 (0.0-0.04); IMM GRAN% 0.4 % (0.0-0.5); LYMPH# 2.06 X1000 (1.2-3.4); LYMPH% 14.7 % (20.5-51.1); MCH 29.8 PG (27-31); MCV 90.3 FL (81-99); MONO# 1.83 X1000 (0.11-0.59); MONO% 13.1 % (1.7-9.3); MPV 9.9 FL (7.4-10.4); NEUT# 9.61 X1000 (1.4-6.5); NEUT% 68.6 % (42.2-75.2); PLT 362 X1000 (130-400); RBC 4.13 XMIL (4.7-6.1); RDW 13.4 % (11.5-14.5); WBC 13.99 X1000 (4.8-10.8)
[2019-03-02 08:07] LABS: CALCIUM 9.3 mg/dL (8.8-10.2); CREATININE 2.1 mg/dL (0.7-1.2); POTASSIUM 4.6 mmol/L (3.5-5.1)
[2019-03-02] MEDS: BYSTOLIC PO SCH (08:54)
[2019-03-02] MEDS: NICODERM PATCH TD SCH (08:57)
[2019-03-02] MEDS: ULTRACET 37.5MG/325MG PO SCH ×3 (08:57→17:02)
[2019-03-02] MEDS: LR 1,000 ML IV SCH ×2 (08:57→21:35)
[2019-03-02] MEDS: CYMBALTA PO SCH (08:57)
[2019-03-02] MEDS ORDERED: MYLICON DROPS PO PRN (13:47)
--- NOTE | 2019-03-02 18:03 | PROGRESS NOTE ---
DATE: 03/02/2019 SUBJECTIVE: Mr. Loc Sexton is status post laparoscopic cholecystectomy for gangrenous acute cholecystitis. He had a cholangiogram at the time of surgery which was normal. His postoperative convalescence has been complicated by confusion, which has improved. There is a question of whether he has a low blood pressure today, but he is awake. He is appropriate. He is tolerating a diet, and we will advance his diet to a regular diet. ASSESSMENT AND PLAN: His family wants him to go to rehab and that is being planned, in some rehab in [place]. I think it is okay from a surgical standpoint to discharge him, with followup in my outpatient office after he is discharged from rehab. cc: Farzana Dang MD
--- NOTE | 2019-03-02 18:10 | PROGRESS NOTE ---
DATE: 03/02/2019 INTERVAL HISTORY: Patient with some mild confusion overnight but did not become significantly agitated. More awake and alert this morning. Remains afebrile. Tolerating full liquid diet. Was having some constipation but had a large bowel movement earlier this morning. Worked with Physical Therapy and did fairly well but did require some assistance. Discussed with family. They are concerned about their ability to take care of him at home if his strength is not significantly improved between now and then. I asked Social Work to look into rehab placement. REVIEW OF SYSTEMS: Twelve-point review of systems negative except as per interval history. LABORATORY DATA: WBC 13.9, hemoglobin 12.3, hematocrit 37.3, platelets 362, sodium 135, potassium 4.6, bicarb 22, BUN 37, creatinine 2.1, glucose 128. VITALS: T-max 98.2 degrees, pulse 75, respirations 18, blood pressure 88/45, O2 saturation 94% on room air. PHYSICAL EXAMINATION: General: No acute distress. Vitals Signs: Above. HEENT: Normocephalic, atraumatic. Moist mucous membranes. No cervical adenopathy. Cardiovascular: Regular rate and rhythm. No murmurs noted. Pulmonary: Clear to auscultation bilaterally. No wheezing, rales, or rhonchi. Abdomen: Soft. Minimal tenderness, which is to be expected immediately around surgical sites. Bowel sounds positive. Extremities: Peripheral pulses intact. No clubbing or cyanosis. Neurologic: Cranial nerves grossly intact, mild global weakness but no focal deficit seen. Psychiatric: Patient awake, alert, follows commands and responds to questions appropriately. Oriented to person and place but not time. Skin: No new rashes or lesions identified. Surgical incisions look good. ASSESSMENT AND PLAN: 1. Acute cholecystitis. The patient is status post laparoscopic cholecystectomy. Has been on full liquids and doing well on that. Can likely advance diet but will defer to surgery. Surgery following. Continue on Zosyn for now but can likely try transition to p.o. antibiotics at discharge. 2. Acute kidney injury on chronic kidney disease 3. Baseline creatinine appears to be approximately 1.6. Trended up to 2.3 but trending back down now to 2.1. Continue fluids and monitor. 3. Hypertension. Blood pressure is actually a little bit on the low side, although generally acceptable. Holding losartan and minoxidil. Continue beta azul for now, but if blood pressure remains low, then we will likely stop that as well. Continue fluids as above. 4. Likely mild to moderate dementia with some delirium/sundowning. Again, some mild confusion/hallucinations overnight but no significant agitation. Seroquel available p.r.n. if needed. 5. Generalized weakness. He is able to ambulate some but did require some assistance with PT this morning. Family concerned about their ability to take care of him as is. Placement in progress. 6. Tobacco abuse. Patient doing well with nicotine patch. Cessation has been discussed.
[2019-03-02] MEDS: ZOFRAN IV PRN (18:35)
[2019-03-02] MEDS: ASPIRIN PO SCH (21:55)
[2019-03-02] MEDS: DESYREL PO PRN (21:56)
[2019-03-02] MEDS: SEROQUEL PO PRN (21:56)
[2019-03-02] MEDS: PEPCID PO SCH (21:56)
[2019-03-02] MEDS: FLOMAX PO SCH (21:56)
[2019-03-03] MEDS: ZOSYN 2.25 GM in NS 50 ML IV SCH ×2 (05:57→11:57)
[2019-03-03] MEDS: HUMALOG SUBQ SCH (07:22)
[2019-03-03 08:23] LABS: BASO% 0.3 % (0.0-0.8); EOS% 4.4 % (0.0-10.0); HEMATOCRIT 32.6 % (42.0-52.0); HEMOGLOBIN 10.7 g/dL (14.0-18.0); IMM GRAN% 0.3 % (0.0-0.5); LYMPH% 17.3 % (20.5-51.1); MCH 29.6 PG (27-31); MCHC 32.8 g/dL (33-37); MCV 90.3 FL (81-99); MONO% 16.3 % (1.7-9.3); MPV 10.2 FL (7.4-10.4); NEUT# 6.51 X1000 (1.4-6.5); NEUT% 61.4 % (42.2-75.2); PLT 359 X1000 (130-400); RBC 3.61 XMIL (4.7-6.1); RDW 13.2 % (11.5-14.5)
[2019-03-03 08:24] LABS: BASO# 0.03 X1000 (0.0-0.2); EOS# 0.47 X1000 (0.0-0.7); IMM GRAN# 0.03 X1000 (0.0-0.04); LYMPH# 1.83 X1000 (1.2-3.4); MONO# 1.73 X1000 (0.11-0.59)
[2019-03-03 08:44] LABS: CALCIUM 9.3 mg/dL (8.8-10.2); CREATININE 2.1 mg/dL (0.7-1.2); POTASSIUM 3.9 mmol/L (3.5-5.1)
[2019-03-03] MEDS: ULTRACET 37.5MG/325MG PO SCH ×2 (09:27→14:01)
[2019-03-03] MEDS: CYMBALTA PO SCH (09:27)
[2019-03-03] MEDS: BYSTOLIC PO SCH (09:28)
[2019-03-03] MEDS: NICODERM PATCH TD SCH (09:28)
[2019-03-03 11:58] VITALS: BP 126/49
--- NOTE | 2019-03-03 14:22 | DISCHARGE SUMMARY ---
ADMISSION DATE: 02/27/2019 DISCHARGE DATE: 03/03/2019 CONSULT: General surgery, Dr. Dang. PROCEDURE: Laparoscopic cholecystectomy. PERTINENT STUDIES: A patient with leukocytosis, which trended up to 24.12 after surgery and with antibiotics trended back down to 10.6. The patient had acute kidney injury on CKD 3. Initial creatinine 1.6, trended up to a 2.3 and then back down to 2.1 by the time of discharge. Initial CT abdomen and pelvis with distended gallbladder, bilateral inguinal hernias containing fluid. Abdominal ultrasound showed distended gallbladder with multiple stones. DISCHARGE DIAGNOSES: 1. Acute cholecystitis with sepsis. 2. Acute kidney injury on chronic kidney disease 3. 3. Hypertension. 4. Mild dementia. 5. Generalized weakness. 6. Tobacco abuse. 7. Diabetes mellitus. 8. Diabetic neuropathy. 9. Benign prostatic hypertrophy. 10. Chronic pain. HOSPITAL COURSE: The patient initially presented with complaints of abdominal pain which had started earlier that evening. Pain was present in both upper quadrants. It was accompanied by nausea and vomiting. Initial evaluation was suggestive of acute cholecystitis and patient was taken to the OR by Dr. Dang for laparoscopic cholecystectomy. He was placed on antibiotics with Zosyn. His white count trended down steadily with antibiotics and surgery, and normalized at time of discharge. He had some occasional mild delirium, primarily in the evening. On conversation with family, it does sound like he has at least mild dementia, likely Alzheimer's type, but he never had major agitation or aggression. He remained cooperative and conversant. The patient is noted to have chronic kidney disease, baseline in the mid to high 1s. The patient's creatinine 1.7 initially. Did have a bit of an acute kidney injury with creatinine trending up to 2.3. Was given some gentle hydration. This was trending back down to 2.1 at the time of discharge. Fluids were discontinued as his p.o. intake which was poor immediately postop, was improving. He was on gabapentin for diabetic neuropathy at home, which was held during this hospitalization. He did not have any significant neuropathic pain, so this was not restarted. Patient did have some mild hypotension postop but with gentle hydration and holding his home Minoxidil and CELINE, this improved. Blood pressure remained reasonably controlled on just his beta blockers. The other medications were not restarted. The patient's diabetes was reportedly diet controlled at home. His A1c was 6.3, suggesting reasonable control. He did have some moderate elevations up into the low 200s here but it is likely due to stress of infection. No new diabetes medications were started at discharge. Postop, patient had ongoing generalized weakness. After discussion with patient and family, they elected to go to rehab for a while to try to optimize his general strength and ability to ambulate independently. The patient's chronic and acute pain were reasonably controlled with his home tramadol which was continued. His Cymbalta for his chronic pain was also continued. He was given a nicotine patch and counseled on tobacco cessation. DISCHARGE VITAL SIGNS: Temperature 98.9 degrees, pulse 76, respirations 20, blood pressure 126/49, O2 saturation 93% on room air. DISCHARGE DIET: Diabetic. DISCHARGE MEDICATIONS: 1. Aspirin 81 mg p.o. at bedtime. 2. Bystolic 10 mg p.o. daily. 3. Cymbalta 60 mg p.o. daily. 4. Icar C 1 tab daily. 5. Multivitamin daily. 6. Plavix 75 mg p.o. daily. 7. Omeprazole 40 mg p.o. daily. 8. Ultracet 37.5/325 half tab p.o. t.i.d. p.r.n. 9. Flomax 0.4 mg p.o. at bedtime. 10. Augmentin 875/125 one tab p.o. b.i.d. with last dose 03/07/2019. 11. Trazodone 50 mg p.o. at bedtime as needed. 12. Simethicone 40 mg p.o. as needed. 13. Nicotine patch 20 mg daily. 14. Seroquel 25 mg p.o. at bedtime p.r.n. FOLLOWUP AND PLAN: Patient discharging to [facility]. Will undergo rehab efforts to try to maximize his ability to ambulate. Continue p.o. antibiotics for another 4 days. Monitor blood pressure. Recheck kidney function with a basic metabolic panel in 2 to 4 days to ensure that his kidney functions continue to normalize. Follow up with PCP and surgery after discharge from rehab. Greater than 30 minutes spent arranging discharge and counseling patient.
== END 2019-03-03 15:30 | DRG 854 ==
LOC: SUPCPDRO → ED 01:35 → 3N 12:37 → SUATTDRO 12:37 → 3N 03-01 14:39
PROVIDERS: ATTEND Internal Medicine
CPT/HCPCS: 71010; 71045; 74176; 74300; 76700; 80048; 80053; 81001; 82150; 82550; 82948; 83605; 83690; 84478; 84484; 85025; 88304; 93005; 94761; 94799; 96374; 96375; 97162; 97530; 99285; A9270; C1751; J0131; J0330; J0360; J1100; J1170; J1815; J2270; J2405; J2543; J7030; J7120; Q9966; Q9967; XXXXX